=== PATIENT | male | born 1970 | race Two or more races ===

== ENCOUNTER 2017-03-10 13:52 | Inpatient (IN) | payer OTHER ==
[~2017-03-10] VITALS: Ht 175.3 cm; Wt 81.6 kg
[2017-03-10 13:52] VITALS: BP 125/83
[2017-03-10 14:28] LABS: APPEARANCE,URINE CLEAR; BASOPHILS % (AUTO) 0.8 % (0.0-2.0); EOSINOPHILS % (AUTO) 0.2 % (0.0-3.0); KETONES,URINE 4+ (NEGATIVE); LEUKOCYTE ESTERASE ,URINE NEGATIVE (NEGATIVE); LYMPHOCYTES % (AUTO) 25.6 % (20.0-45.0); MEAN CORPUSCULAR HEMOGLOBIN 28.7 PG (27.0-31.0); MEAN CORPUSCULAR VOLUME 87 FL (80-99); MEAN PLATELET VOLUME 7.2 FL (6.5-10.1); MONOCYTES % (AUTO) 11.4 % (1.0-10.0); NEUTROPHILS % (AUTO) 62.1 % (45.0-75.0); NITRITE,URINE NEGATIVE (NEGATIVE); PH,URINE 6.5 (4.5-8.0); PLATELET COUNT 266 K/UL (150-450); PROTEIN,URINE 1+ (NEGATIVE); RED BLOOD COUNT 5.55 M/UL (4.70-6.10); RED CELL DISTRIBUTION WIDTH 14.2 % (11.6-14.8); UROBILINOGEN,URINE 1 MG/DL (0.0-1.0); WHITE BLOOD COUNT 7.9 K/UL (4.8-10.8)
[2017-03-10 14:38] LABS: SQUAMOUS EPITHELIAL CELL,UR OCCASIONAL /LPF (NONE/OCC); WBC,URINE 0-2 /HPF (0 - 0)
[2017-03-10 14:39] LABS: BACTERIA,URINE OCCASIONAL /HPF
[2017-03-10 14:40] LABS: INR 0.9 (0.9-1.1); PROTHROMBIN TIME 9.8 SEC (9.30-11.50)
[2017-03-10 14:41] LABS: ANION GAP 22 mmol/L (5-15); CARBON DIOXIDE 19 MMOL/L (21-32); CHLORIDE 85 MMOL/L (98-107); CREATININE 0.9 MG/DL (0.55-1.30); GLOMERULAR FILTRATION RATE > 60 mL/min (>60); SODIUM 126 MMOL/L (136-145)
[2017-03-10 14:51] LABS: ALANINE AMINOTRANSFERASE 40 U/L (12-78); ALBUMIN/GLOBULIN RATIO 1.1 (1.0-2.7); ASPARTATE AMINO TRANSFERASE 55 U/L (15-37); LIPASE 1154 U/L (73-393); TOTAL PROTEIN 8.2 G/DL (6.4-8.2)
[2017-03-10 14:54] LABS: BILIRUBIN,DIRECT 0.5 MG/DL (0.0-0.3)
[2017-03-10] MEDS ORDERED: Morphine Sulfate 4mg/ml Inj IVP ONE (15:15)
--- NOTE | 2017-03-10 16:03 | Emergency Room Report ---
History of Present Illness General Chief Complaint: Flu Like Symptoms Source: Patient, EMS Present Illness HPI The patient is a 46 old male presenting for 5 days of nausea, vomiting, abdominal pain, diarrhea, and subjective fevers. He denies any known sick contacts or recent travel. He denies any medical history. Pain is a 10 out of 10 dull ache to the mid upper abdomen and radiates to the mid back. No known provoking or relieving factors. He does admit to frequent alcohol use. He denies any other symptoms including hematemesis, melena, hematochezia, rash, shortness of breath, chest pain Allergies: Coded Allergies: No Known Allergies (Unverified , 03/10/17) Patient History Past Medical History: see triage record Pertinent Family History: none Social History: Reports: alcohol use Reviewed Nursing Documentation: PMH: Agreed, PSxH: Agreed Nursing Documentation-PMH Past Medical History: No Stated History Review of Systems All Other Systems: negative except mentioned in HPI Physical Exam Vital Signs Date Time Temp Pulse Resp B/P (MAP) Pulse Ox O2 Delivery O2 Flow Rate FiO2 03/10/17 13:49 97.2 89 20 125/83 99 Room Air Sp02 EP Interpretation: reviewed, normal General Appearance: no apparent distress, alert, GCS 15, non-toxic Head: normocephalic, atraumatic Eyes: bilateral eye normal inspection, bilateral eye PERRL ENT: hearing grossly normal, normal pharynx, no angioedema, normal voice Respiratory: chest non-tender, lungs clear, normal breath sounds, speaking full sentences Cardiovascular #1: regular rate, rhythm, no edema Gastrointestinal: normal bowel sounds, soft, no guarding, tenderness - epigastric Rectal: deferred Genitourinary: normal inspection, no CVA tenderness Musculoskeletal: back normal, gait/station normal, normal range of motion, non- tender Neurologic: alert, oriented x3, responsive, motor strength/tone normal, sensory intact, speech normal Psychiatric: judgement/insight normal, memory normal, mood/affect normal, no suicidal/homicidal ideation Skin: normal color, no rash, warm/dry, well hydrated Medical Decision Making PA Attestation Dr. Castillo is my supervising physician. Patient management was discussed with my supervising physician Diagnostic Impression: Primary Impression: Pancreatitis, acute Qualified Codes: K85.90 - Acute pancreatitis without necrosis or infection, unspecified Additional Impressions: Hyponatremia Hypokalemia ER Course The patient is a 46 old male presenting for 5 days of nausea, vomiting, abdominal pain, diarrhea, and subjective fevers Differential diagnoses considered include but not limited to gastritis, pancreatitis, appendicitis, dehydration, UTI, among others PE: afebrile. NAD Abd is soft. Normal BS. Non distended. TTP across upper abdomen. No guarding No CVA tenderness Labs: Significant for hyponatremia, hypokalemia, and significantly elevated lipase Abd US: No signs of gallstones or cholecystis The patient is given IV fluids and will be admitted in serious but stable condition. Dr. Castillo has spoken with admitting physician Laboratory Tests Test 03/10/17 14:00 White Blood Count 7.9 K/UL (4.8-10.8) Red Blood Count 5.55 M/UL (4.70-6.10) Hemoglobin 15.9 G/DL (14.2-18.0) Hematocrit 48.1 % (42.0-52.0) Mean Corpuscular Volume 87 FL (80-99) Mean Corpuscular Hemoglobin 28.7 PG (27.0-31.0) Mean Corpuscular Hemoglobin Concent 33.0 G/DL (32.0-36.0) Red Cell Distribution Width 14.2 % (11.6-14.8) Platelet Count 266 K/UL (150-450) Mean Platelet Volume 7.2 FL (6.5-10.1) Neutrophils (%) (Auto) 62.1 % (45.0-75.0) Lymphocytes (%) (Auto) 25.6 % (20.0-45.0) Monocytes (%) (Auto) 11.4 % (1.0-10.0) H Eosinophils (%) (Auto) 0.2 % (0.0-3.0) Basophils (%) (Auto) 0.8 % (0.0-2.0) Prothrombin Time 9.8 SEC (9.30-11.50) Prothrombin Time INR 0.9 (0.9-1.1) PTT 29 SEC (23-33) Urine Color Pale yellow Urine Appearance Clear Urine pH 6.5 (4.5-8.0) Urine Specific [place] 1.005 (1.005-1.035) Urine Protein 1+ (NEGATIVE) H Urine Glucose (UA) Negative (NEGATIVE) Urine Ketones 4+ (NEGATIVE) H Urine Occult Blood 2+ (NEGATIVE) H Urine Nitrite Negative (NEGATIVE) Urine Bilirubin Negative (NEGATIVE) Urine Urobilinogen 1 MG/DL (0.0-1.0) H Urine Leukocyte Esterase Negative (NEGATIVE) Urine RBC 2-4 /HPF (0 - 0) H Urine WBC 0-2 /HPF (0 - 0) Urine Squamous Epithelial Cells Occasional /LPF Urine Bacteria Occasional /HPF (NONE) Sodium Level 126 MMOL/L (136-145) L Potassium Level 3.0 MMOL/L (3.5-5.1) L Chloride Level 85 MMOL/L (98-107) L Carbon Dioxide Level 19 MMOL/L (21-32) L Anion Gap 22 mmol/L (5-15) H Blood Urea Nitrogen 5 mg/dL (7-18) L Creatinine 0.9 MG/DL (0.55-1.30) Estimate Glomerular Filtration Rate > 60 mL/min (>60) Glucose Level 153 MG/DL (74-106) H Calcium Level 10.0 MG/DL (8.5-10.1) Total Bilirubin 1.4 MG/DL (0.2-1.0) H Direct Bilirubin 0.5 MG/DL (0.0-0.3) H Aspartate Amino Transferase (AST) 55 U/L (15-37) H Alanine Aminotransferase (ALT) 40 U/L (12-78) Alkaline Phosphatase 48 U/L (46-116) Total Protein 8.2 G/DL (6.4-8.2) Albumin 4.3 G/DL (3.4-5.0) Globulin 3.9 g/dL Albumin/Globulin Ratio 1.1 (1.0-2.7) Lipase 1154 U/L (73-393) H Lab Results Impression Significant for hyponatremia, hypokalemia, and significantly elevated lipase Chest X-Ray Diagnostic Results Chest X-Ray Diagnostic Results : Chest X-Ray Ordered: Yes # of Views/Limited/Complete: 1 View Indication: Other - abd pain EP Interpretation: Yes PA Xray: Interpretation reviewed, by supervising MD, and agrees with findings. Interpretation: no consolidation, no effusion, no pneumothorax, no acute cardiopulmonary disease Impression: No acute disease Electronically Signed by: Fernando Terzian, PA-C CT/MRI/US Diagnostic Results CT/MRI/US Diagnostic Results : Imaging Test Ordered: Abd US Impression Gallbladder sludge. Negative for gallstones or dilated ducts Liver demonstrates diffusely increased echogenicity, consistent with diffuse hepatocellular disease, most likely fatty change. Last Vital Signs Date Time Temp Pulse Resp B/P (MAP) Pulse Ox O2 Delivery O2 Flow Rate FiO2 03/10/17 13:55 86 20 Room Air 03/10/17 13:52 97.2 125/83 99 Status: improved Disposition: ADMITTED INPATIENT Condition: Serious Scripts No Active Prescriptions or Reported Meds Referrals: NON PHYSICIAN (PCP) FERNANDO STEWARD Mar 10, 2017 16:03
[2017-03-10] MEDS ORDERED: Miralax 17gm pkt ORAL PRN (16:45)
[2017-03-10] MEDS ORDERED: Mylanta II UD 30ml ORAL PRN (16:45)
[2017-03-10] MEDS ORDERED: Nitroglycerin Subl 0.4mg tab SL PRN (16:45)
[2017-03-10] MEDS ORDERED: Metoclopramide 10mg/2ml Inj IVP PRN (16:45)
[2017-03-10] MEDS ORDERED: LORazepam Inj 2mg/ml 1ml IV PRN (16:45)
[2017-03-10 17:00] VITALS: BP 121/79
--- NOTE | 2017-03-10 17:11 | Diagnostic Imaging Report ---
Indication: Right upper quadrant pain, nausea, vomiting x5 days Technique: Parra-scale and duplex images of the upper abdomen were obtained Comparison: None Findings: Gallbladder demonstrates sludge. No stones, wall thickening, nor pericholecystic fluid. Sonographic Kuhn's sign is negative. Common bile duct measures 4 mm in diameter. No intrahepatic biliary ductal dilatation. Liver demonstrates diffusely increased echogenicity, consistent with diffuse hepatocellular disease, most likely fatty change. Portal vein and hepatic veins are patent. Pancreas is unremarkable. Spleen is unremarkable. Left kidney measures 10.9 cm in length. Right kidney measures 10 cm length. Both kidneys demonstrate normal echogenicity. There is no hydronephrosis. No focal abnormality . Non-aneurysmal abdominal aorta . Impression: Gallbladder sludge. Negative for gallstones or dilated ducts Liver demonstrates diffusely increased echogenicity, consistent with diffuse hepatocellular disease, most likely fatty change.
[2017-03-10 17:29] VITALS: BP 115/77
[2017-03-10 18:03] VITALS: BP 110/97
[2017-03-10 18:10] LABS: FREE T3 2.6 pg/mL (2.3-4.2); THYROID STIMULATING HORMONE 1.292 uiU/mL (0.358-3.740)
[2017-03-10] MEDS: D5 1/2NS 1,000 ML IV SCH (18:43)
[2017-03-10 20:00] VITALS: BP 115/73
[2017-03-10] MEDS: Folic Acid 1 MG, Magnesium Sulfate 2,000 MG, Multivitamin - 12 Injection 10 ML in NS w/... IV SCH (20:48)
[2017-03-10] MEDS: Heparin 5000 units/ml inj SUBQ SCH (20:49)
[2017-03-10] MEDS: Morphine Sulfate 2mg/ml Inj IVP PRN (20:50)
--- NOTE | 2017-03-10 21:51 | Consultation ---
History of Present Illness General Date patient seen: Mar 10, 2017 Chief Complaint: Abdominal pain nausea afgter alcohol binging Referring physician: Dr. Mitchell Reason for Consultation: Abdminal pain and nausea after alcohol binging Present Illness CHRIS Martinez is a 46 yo gentle man with pmhx hip replacement 06/2016 depression and alcoholism and dependence and addiction more than 20 years who presents to [facility] emergency room with complaint of severe burning abdominal pain and nausea with radiation to the left upper quadrant of the abdomen. The patient denies any fever or chills, no complaint of shortness of breath or chest pain. The presents to the emergency room according to him because the abdominal pain is excruciating and the feeling of nausea is profound, the patient admits he cannot drink or eat without feeling nauseated. I was asked to consult on this case from a internal medicine point of view. The patient laboratory results are significant for large deviations in electrolyte balance and elevation in lipase level, the patient is to be admitted with a diagnosis of acute alcohol induced pancreatitis. Allergies: Coded Allergies: No Known Allergies (Unverified , 03/10/17) Medication History No Active Prescriptions or Reported Meds Patient History Healthcare decision maker Resuscitation status Advanced Directive on File Past Medical/Surgical History Past Medical/Surgical History: (1) Cyclical vomiting (2) Low back pain (3) Elevated liver enzymes (4) Sludge in gallbladder Review of Systems Constitutional: Reports: malaise, weakness Gastrointestinal: Reports: abdominal pain, nausea Physical Exam General Appearance: lethargic, mild distress Lines, tubes and drains: peripheral HEENT: normocephalic, atraumatic, PERRL Neck: non-tender, normal alignment, supple, normal inspection Respiratory/Chest: chest wall non-tender, normal breath sounds, no respiratory distress, no accessory muscle use Breasts: no masses Cardiovascular/Chest: normal peripheral pulses, normal rate, regular rhythm, no JVD Abdomen: normal bowel sounds, non tender, soft, no organomegaly, no mass Genitourinary/Rectal: normal genital exam, normal rectal exam Extremities: normal range of motion, non-tender, normal inspection, no calf tenderness Skin Exam: normal pigmentation, warm/dry Neurologic: l d rn II-XII grossly normal, no motor/sensory deficits Last 24 Hour Vital Signs Date Time Temp Pulse Resp B/P (MAP) Pulse Ox O2 Delivery O2 Flow Rate FiO2 03/10/17 20:00 98.1 93 20 115/73 99 Room Air 03/10/17 18:03 97.9 97 18 110/97 97 03/10/17 17:29 97.7 96 19 115/77 96 Room Air 03/10/17 17:01 97.2 94 18 121/79 100 Room Air 03/10/17 17:00 97.6 94 18 121/79 99 Room Air 03/10/17 15:55 97.9 03/10/17 13:55 86 20 Room Air 03/10/17 13:52 97.2 87 20 125/83 99 Room Air 03/10/17 13:49 97.2 89 20 125/83 99 Room Air Intake and Output 03/10/17 03/11/17 19:00 07:00 Intake Total 1000 ml Balance 1000 ml Intake IV Total 1000 ml # Voids 1 Laboratory Tests Test 03/10/17 14:00 03/10/17 16:00 White Blood Count 7.9 K/UL (4.8-10.8) Red Blood Count 5.55 M/UL (4.70-6.10) Hemoglobin 15.9 G/DL (14.2-18.0) Hematocrit 48.1 % (42.0-52.0) Mean Corpuscular Volume 87 FL (80-99) Mean Corpuscular Hemoglobin 28.7 PG (27.0-31.0) Mean Corpuscular Hemoglobin Concent 33.0 G/DL (32.0-36.0) Red Cell Distribution Width 14.2 % (11.6-14.8) Platelet Count 266 K/UL (150-450) Mean Platelet Volume 7.2 FL (6.5-10.1) Neutrophils (%) (Auto) 62.1 % (45.0-75.0) Lymphocytes (%) (Auto) 25.6 % (20.0-45.0) Monocytes (%) (Auto) 11.4 % (1.0-10.0) H Eosinophils (%) (Auto) 0.2 % (0.0-3.0) Basophils (%) (Auto) 0.8 % (0.0-2.0) Prothrombin Time 9.8 SEC (9.30-11.50) Prothromb Time International Ratio 0.9 (0.9-1.1) Activated Partial Thromboplast Time 29 SEC (23-33) Urine Color Pale yellow Urine Appearance Clear Urine pH 6.5 (4.5-8.0) Urine Specific [place] 1.005 (1.005-1.035) Urine Protein 1+ (NEGATIVE) H Urine Glucose (UA) Negative (NEGATIVE) Urine Ketones 4+ (NEGATIVE) H Urine Occult Blood 2+ (NEGATIVE) H Urine Nitrite Negative (NEGATIVE) Urine Bilirubin Negative (NEGATIVE) Urine Urobilinogen 1 MG/DL (0.0-1.0) H Urine Leukocyte Esterase Negative (NEGATIVE) Urine RBC 2-4 /HPF (0 - 0) H Urine WBC 0-2 /HPF (0 - 0) Urine Squamous Epithelial Cells Occasional /LPF Urine Bacteria Occasional /HPF (NONE) Sodium Level 126 MMOL/L (136-145) L Potassium Level 3.0 MMOL/L (3.5-5.1) L Chloride Level 85 MMOL/L (98-107) L Carbon Dioxide Level 19 MMOL/L (21-32) L Anion Gap 22 mmol/L (5-15) H Blood Urea Nitrogen 5 mg/dL (7-18) L Creatinine 0.9 MG/DL (0.55-1.30) Estimat Glomerular Filtration Rate > 60 mL/min (>60) Glucose Level 153 MG/DL (74-106) H Osmolality 270 mOsm/kg (297-317) L Uric Acid 9.0 MG/DL (2.6-7.2) H Calcium Level 10.0 MG/DL (8.5-10.1) Total Bilirubin 1.4 MG/DL (0.2-1.0) H Direct Bilirubin 0.5 MG/DL (0.0-0.3) H Aspartate Amino Transf (AST/SGOT) 55 U/L (15-37) H Alanine Aminotransferase (ALT/SGPT) 40 U/L (12-78) Alkaline Phosphatase 48 U/L (46-116) Total Protein 8.2 G/DL (6.4-8.2) Albumin 4.3 G/DL (3.4-5.0) Globulin 3.9 g/dL Albumin/Globulin Ratio 1.1 (1.0-2.7) Lipase 1154 U/L (73-393) H Thyroid Stimulating Hormone (TSH) 1.292 uiU/mL (0.358-3.740) Free Thyroxine 1.23 NG/DL (0.76-1.46) Free Triiodothyronine 2.6 pg/mL (2.3-4.2) Cortisol Pending Urine Osmolality 199 mOsm/kg (429-449) L Urine Random Sodium < 10 MEQ/L (20-110) L Height (Feet): 5 Height (Inches): 9.00 Weight (Pounds): 180 Medications Current Medications Medications (Trade) Dose Ordered Sig/Taj Route PRN Reason Start Time Stop Time Status Last Admin Dose Admin Acetaminophen (Tylenol) 650 mg Q4H PRN ORAL fever 03/10/17 16:45 04/09/17 16:44 Al Hydroxide/Mg Hydroxide (Mylanta II) 30 ml Q6H PRN ORAL dyspepsia 03/10/17 16:45 04/09/17 16:44 Dextrose (Dextrose 50%) STAT PRN IV Hypoglycemia 03/10/17 16:45 04/09/17 16:44 Dextrose/Sodium Chloride 1,000 ml @ 75 mls/hr [id number] IV 03/10/17 17:30 04/09/17 17:29 03/10/17 18:43 Diphenhydramine HCl (Benadryl) 25 mg Q6H PRN ORAL Itching/Pruritis 03/10/17 16:45 04/09/17 16:44 Folic Acid 1 mg/ Magnesium Sulfate 2000 mg/ Multivitamins 10 ml/Sodium Chloride 1,014.2 ml @ 125 mls/ hr Q24H IV 03/10/17 20:00 04/09/17 19:59 03/10/17 20:48 Heparin Sodium (Porcine) (Heparin 5000 units/ml) 5,000 units EVERY 12 HOURS SUBQ 03/10/17 21:00 04/09/17 20:59 03/10/17 20:49 Lorazepam (Ativan 2mg/ml 1ml) 1 mg Q4H PRN IV agitation 03/10/17 16:45 03/17/17 16:44 Metoclopramide HCl (Reglan) 10 mg Q6H PRN IVP severe nausea 03/10/17 16:45 04/09/17 16:44 Morphine Sulfate (Morphine Sulfate) 2 mg Q4H PRN IVP severe Pain (Pain Scale 7-10) 03/10/17 16:45 03/17/17 16:44 03/10/17 20:50 Nitroglycerin (Ntg) 0.4 mg Q5M X 3 DOSES PRN SL Prn Chest Pain 03/10/17 16:45 04/09/17 16:44 Ondansetron HCl (Zofran) 4 mg Q6H PRN IVP Nausea & Vomiting 03/10/17 16:45 04/09/17 16:44 Pantoprazole (Protonix) 40 mg DAILY IV 03/11/17 09:00 04/10/17 08:59 Polyethylene Glycol (Miralax) 17 gm HSPRN PRN ORAL Constipation 03/10/17 16:45 04/09/17 16:44 Promethazine HCl (Phenergan) 25 mg Q8H PRN IV refractory nausea 03/10/17 16:45 04/09/17 16:44 Temazepam (Restoril) 15 mg HSPRN PRN ORAL Insomnia 03/10/17 16:45 03/17/17 16:44 Assessment/Plan Status: stable, progressing Assessment/Plan Acute alcohol induced pancreatitis Hyponatremia Hypokalemia Hepatocellular disease likely fatty liver disease History of alcoholism and dependence more than 20 years Plan NPO IVF hydration Electrolyte replacement Gastroenterology consultation requested Serial lipase Anti-emetic prn Patient education extensive abstanance from ETOH Patient education counseling options 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
[2017-03-11] VITALS: BP 107/70
[2017-03-11 01:20] LABS: APPEARANCE,URINE CLEAR; KETONES,URINE 4+ (NEGATIVE); LEUKOCYTE ESTERASE ,URINE 1+ (NEGATIVE); NITRITE,URINE NEGATIVE (NEGATIVE); PH,URINE 6 (4.5-8.0); PROTEIN,URINE 2+ (NEGATIVE); UROBILINOGEN,URINE 4 MG/DL (0.0-1.0)
[2017-03-11 02:00] LABS: BACTERIA,URINE FEW /HPF; MUCUS,URINE FEW /LPF (NONE/OCC); WBC,URINE 0-2 /HPF (0 - 0)
[2017-03-11 04:00] VITALS: BP 116/98
[2017-03-11] MEDS: D5 1/2NS 1,000 ML IV SCH (06:32)
[2017-03-11 07:13] LABS: BASOPHILS % (AUTO) 0.8 % (0.0-2.0); EOSINOPHILS % (AUTO) 0.6 % (0.0-3.0); LYMPHOCYTES % (AUTO) 36.8 % (20.0-45.0); MEAN CORPUSCULAR HEMOGLOBIN 29.4 PG (27.0-31.0); MEAN CORPUSCULAR HGB CONC 33.6 G/DL (32.0-36.0); MEAN CORPUSCULAR VOLUME 87 FL (80-99); MEAN PLATELET VOLUME 6.8 FL (6.5-10.1); MONOCYTES % (AUTO) 10.1 % (1.0-10.0); NEUTROPHILS % (AUTO) 51.6 % (45.0-75.0); PLATELET COUNT 250 K/UL (150-450); RED BLOOD COUNT 4.73 M/UL (4.70-6.10); RED CELL DISTRIBUTION WIDTH 14.4 % (11.6-14.8); WHITE BLOOD COUNT 5.4 K/UL (4.8-10.8)
[2017-03-11 07:49] LABS: ALANINE AMINOTRANSFERASE 33 U/L (12-78); AMYLASE 112 U/L (25-115); ANION GAP 13 mmol/L (5-15); ASPARTATE AMINO TRANSFERASE 50 U/L (15-37); CALCIUM 8.7 MG/DL (8.5-10.1); CARBON DIOXIDE 26 MMOL/L (21-32); CHLORIDE 95 MMOL/L (98-107); CHOLESTEROL 199 MG/DL (< 200); CHOLESTEROL/HDL RATIO 2.8 (3.3-4.4); CREATININE 0.7 MG/DL (0.55-1.30); GLOMERULAR FILTRATION RATE > 60 mL/min (>60); LIPASE 1135 U/L (73-393); SODIUM 133 MMOL/L (136-145); TOTAL PROTEIN 6.7 G/DL (6.4-8.2)
[2017-03-11 08:00] VITALS: BP 108/73
--- NOTE | 2017-03-11 08:07 | Pulmonology Progress Note ---
Assessment/Plan Assessment/Plan ASSESSMENT acute alcohol induced pancreatitis hypo Na hypo K hepatocellular disease likely fatty liver disease + ETOH abuse marijuana user probably cyclic vomiting syndrome PLAN OF CARE MS floor IVF GI follows trend lipase ( initial 1154) check lipid panel pain management a/emetic prn PPI abdominal US - no dilated ducts, no gallstones, + evidence of diffused hepatocellular disease likely fatty changes DVT prophylaxis urine tox screen + marijuana replace K, check K and Mg in am Na better with IVF add Librium prn for possible w/drawal symptoms start Folic acid and Thiamine counselor aide on ETOH cessation and abstinence from street drugs case discussed and evaluated by supervising physician Subjective Allergies: Coded Allergies: No Known Allergies (Unverified , 03/10/17) Subjective reports abdominal pain admits to recent heavy drinking + nausea, no vomiting today Objective Last 24 Hour Vital Signs Date Time Temp Pulse Resp B/P (MAP) Pulse Ox O2 Delivery O2 Flow Rate FiO2 03/11/17 04:00 98.1 94 18 116/98 97 03/11/17 00:00 97.9 87 20 107/70 98 Room Air 03/10/17 20:00 98.1 93 20 115/73 99 Room Air 03/10/17 18:03 97.9 97 18 110/97 97 03/10/17 17:29 97.7 96 19 115/77 96 Room Air 03/10/17 17:01 97.2 94 18 121/79 100 Room Air 03/10/17 17:00 97.6 94 18 121/79 99 Room Air 03/10/17 15:55 97.9 03/10/17 13:55 86 20 Room Air 03/10/17 13:52 97.2 87 20 125/83 99 Room Air 03/10/17 13:49 97.2 89 20 125/83 99 Room Air General Appearance: WD/WN, no acute distress HEENT: normocephalic, atraumatic, anicteric, PERRL Respiratory/Chest: lungs clear, normal breath sounds, no respiratory distress, no accessory muscle use Cardiovascular: normal peripheral pulses, normal rate, regular rhythm, no JVD Abdomen: normal bowel sounds - abdomen soft, + mild epigastric tenderness , no rebound, no guarding Extremities: no edema, pedal pulses normal Neurologic/Psychiatric: 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 grossly normal, no motor/sensory deficits, alert, oriented x 3, responsive Musculoskeletal: normal muscle bulk Laboratory Tests 03/10/17 14:00: White Blood Count 7.9, Red Blood Count 5.55, Hemoglobin 15.9, Hematocrit 48.1, Mean Corpuscular Volume 87, Mean Corpuscular Hemoglobin 28.7, Mean Corpuscular Hemoglobin Concent 33.0, Red Cell Distribution Width 14.2, Platelet Count 266, Mean Platelet Volume 7.2, Neutrophils (%) (Auto) 62.1, Lymphocytes (%) (Auto) 25.6, Monocytes (%) (Auto) 11.4H, Eosinophils (%) (Auto) 0.2, Basophils (%) ( Auto) 0.8, Prothrombin Time 9.8, Prothromb Time International Ratio 0.9, Activated Partial Thromboplast Time 29, Urine Color Pale yellow, Urine Appearance Clear, Urine pH 6.5, Urine Specific [place] 1.005, Urine Protein 1+H , Urine Glucose (UA) Negative, Urine Ketones 4+H, Urine Occult Blood 2+H, Urine Nitrite Negative, Urine Bilirubin Negative, Urine Urobilinogen 1H, Urine Leukocyte Esterase Negative, Urine RBC 2-4H, Urine WBC 0-2, Urine Squamous Epithelial Cells Occasional, Urine Bacteria Occasional, Sodium Level 126L, Potassium Level 3.0L, Chloride Level 85L, Carbon Dioxide Level 19L, Anion Gap 22H, Blood Urea Nitrogen 5L, Creatinine 0.9, Estimat Glomerular Filtration Rate > 60, Glucose Level 153H, Osmolality 270L, Uric Acid 9.0H, Calcium Level 10.0, Total Bilirubin 1.4H, Direct Bilirubin 0.5H, Aspartate Amino Transf (AST/SGOT) 55H, Alanine Aminotransferase (ALT/SGPT) 40, Alkaline Phosphatase 48, Total Protein 8.2, Albumin 4.3, Globulin 3.9, Albumin/Globulin Ratio 1.1, Lipase 1154H , Thyroid Stimulating Hormone (TSH) 1.292, Free Thyroxine 1.23, Free Triiodothyronine 2.6, Cortisol [Pending] 03/10/17 16:00: Urine Osmolality 199L, Urine Random Sodium < 10L 03/11/17 00:14: Urine Color Yellow, Urine Appearance Clear, Urine pH 6, Urine Specific [place] 1.020, Urine Protein 2+H, Urine Glucose (UA) Negative, Urine Ketones 4+H, Urine Occult Blood 2+H, Urine Nitrite Negative, Urine Bilirubin Negative, Urine Urobilinogen 4H, Urine Leukocyte Esterase 1+H, Urine RBC 5-10H, Urine WBC 0-2, Urine Squamous Epithelial Cells None, Urine Bacteria Few, Urine Mucus FewH, Urine Opiates Screen PositiveH, Urine Barbiturates Screen Negative, Phencyclidine (PCP) Screen Negative, Urine Amphetamines Screen Negative, Urine Benzodiazepines Screen Negative, Urine Cocaine Screen Negative, Urine Marijuana (THC) Screen PositiveH 03/11/17 06:40: White Blood Count 5.4, Red Blood Count 4.73, Hemoglobin 13.9L, Hematocrit 41.4L , Mean Corpuscular Volume 87, Mean Corpuscular Hemoglobin 29.4, Mean Corpuscular Hemoglobin Concent 33.6, Red Cell Distribution Width 14.4, Platelet Count 250, Mean Platelet Volume 6.8, Neutrophils (%) (Auto) 51.6, Lymphocytes (% ) (Auto) 36.8, Monocytes (%) (Auto) 10.1H, Eosinophils (%) (Auto) 0.6, Basophils (%) (Auto) 0.8, Activated Partial Thromboplast Time 28, Sodium Level 133L, Potassium Level 3.0L, Chloride Level 95L, Carbon Dioxide Level 26, Anion Gap 13, Blood Urea Nitrogen 5L, Creatinine 0.7, Estimat Glomerular Filtration Rate > 60, Glucose Level 125H, Calcium Level 8.7, Total Bilirubin 0.8, Aspartate Amino Transf (AST/SGOT) 50H, Alanine Aminotransferase (ALT/SGPT) 33, Alkaline Phosphatase 37L, Total Protein 6.7, Albumin 3.3L, Globulin 3.4, Albumin /Globulin Ratio 1.0, Lipase 1135H, Triglycerides Level 168H, Cholesterol Level 199, LDL Cholesterol 84, HDL Cholesterol 71H, Cholesterol/HDL Ratio 2.8L, Amylase Level 112 Current Medications Medications (Trade) Dose Ordered Sig/Taj Route PRN Reason Start Time Stop Time Status Last Admin Dose Admin Acetaminophen (Tylenol) 650 mg Q4H PRN ORAL fever 03/10/17 16:45 04/09/17 16:44 Al Hydroxide/Mg Hydroxide (Mylanta II) 30 ml Q6H PRN ORAL dyspepsia 03/10/17 16:45 04/09/17 16:44 Dextrose (Dextrose 50%) STAT PRN IV Hypoglycemia 03/10/17 16:45 04/09/17 16:44 Dextrose/Sodium Chloride 1,000 ml @ 75 mls/hr [id number] IV 03/10/17 17:30 04/09/17 17:29 03/11/17 06:32 Diphenhydramine HCl (Benadryl) 25 mg Q6H PRN ORAL Itching/Pruritis 03/10/17 16:45 04/09/17 16:44 Folic Acid 1 mg/ Magnesium Sulfate 2000 mg/ Multivitamins 10 ml/Sodium Chloride 1,014.2 ml @ 125 mls/ hr Q24H IV 03/10/17 20:00 04/09/17 19:59 03/10/17 20:48 Heparin Sodium (Porcine) (Heparin 5000 units/ml) 5,000 units EVERY 12 HOURS SUBQ 03/10/17 21:00 04/09/17 20:59 03/10/17 20:49 Lorazepam (Ativan 2mg/ml 1ml) 1 mg Q4H PRN IV agitation 03/10/17 16:45 03/17/17 16:44 Metoclopramide HCl (Reglan) 10 mg Q6H PRN IVP severe nausea 03/10/17 16:45 04/09/17 16:44 Morphine Sulfate (Morphine Sulfate) 2 mg Q4H PRN IVP severe Pain (Pain Scale 7-10) 03/10/17 16:45 03/17/17 16:44 03/10/17 20:50 Nitroglycerin (Ntg) 0.4 mg Q5M X 3 DOSES PRN SL Prn Chest Pain 03/10/17 16:45 04/09/17 16:44 Ondansetron HCl (Zofran) 4 mg Q6H PRN IVP Nausea & Vomiting 03/10/17 16:45 04/09/17 16:44 Pantoprazole (Protonix) 40 mg DAILY IV 03/11/17 09:00 04/10/17 08:59 Polyethylene Glycol (Miralax) 17 gm HSPRN PRN ORAL Constipation 03/10/17 16:45 04/09/17 16:44 Promethazine HCl (Phenergan) 25 mg Q8H PRN IV refractory nausea 03/10/17 16:45 04/09/17 16:44 Temazepam (Restoril) 15 mg HSPRN PRN ORAL Insomnia 03/10/17 16:45 03/17/17 16:44 Thomas (Rom)Debbi NP Mar 11, 2017 08:07
[2017-03-11] MEDS: Pantoprazole Inj IV SCH (08:38)
[2017-03-11] MEDS: Heparin 5000 units/ml inj SUBQ SCH ×2 (08:40→20:11)
--- NOTE | 2017-03-11 11:32 | GI Initial Consult Note ---
History of Present Illness General Date patient seen: Mar 11, 2017 Time patient seen: 11:22 Reason for Hospitalization: Flu Like Symptoms Referring physician: DORIAN PRYOR Reason for Consultation: PANCREATITIS Present Illness HPI The patient is a 46 old male presenting for 5 days of nausea, vomiting, abdominal pain, diarrhea, and subjective fevers. He denies any known sick contacts or recent travel. He denies any medical history. Pain is a 10 out of 10 dull ache to the mid upper abdomen and radiates to the mid back. No known provoking or relieving factors. He does admit to frequent alcohol use. He denies any other symptoms including hematemesis, melena, hematochezia, rash, shortness of breath, chest pain. GI consulted for pancreatitis. HPI as noted above. Pt seen on floor, awake A &Ox4 NAD with no active s/sx of N/V/D. Per patient states he has recurrent vomiting for the past 3 days. Denies drug use, despite positive utox. States he drinks ETOH approximately 1 bottle of tequila weekly. Patient also c/o of left lumbar pain. Presents today with elevated lipase. No known history of endoscopic or colonoscopies. Home Meds No Active Prescriptions or Reported Meds Med list reviewed/reconciled: Yes Allergies: Coded Allergies: No Known Allergies (Unverified , 03/10/17) Patient History History Provided By: Patient, Medical Record PMH Narrative Past Medical History: see triage record Pertinent Family History: none Social History: Reports: alcohol use Reviewed Nursing Documentation: PMH: Agreed, PSxH: Agreed Nursing Documentation-PM Past Medical History: No Stated History Social History: Reports: alcohol use - 1 bottle tequilla weekly, drug use - denies, despited positive utox Review of Systems All Other Systems: negative except mentioned in HPI Physical Exam Vital Signs Date Time Temp Pulse Resp B/P (MAP) Pulse Ox O2 Delivery O2 Flow Rate FiO2 03/10/17 13:49 97.2 89 20 125/83 99 Room Air Sp02 EP Interpretation: reviewed, normal Labs Laboratory Tests Test 03/10/17 14:00 03/10/17 16:00 03/11/17 00:14 03/11/17 06:40 White Blood Count 7.9 K/UL (4.8-10.8) 5.4 K/UL (4.8-10.8) Red Blood Count 5.55 M/UL (4.70-6.10) 4.73 M/UL (4.70-6.10) Hemoglobin 15.9 G/DL (14.2-18.0) 13.9 G/DL (14.2-18.0) L Hematocrit 48.1 % (42.0-52.0) 41.4 % (42.0-52.0) L Mean Corpuscular Volume 87 FL (80-99) 87 FL (80-99) Mean Corpuscular Hemoglobin 28.7 PG (27.0-31.0) 29.4 PG (27.0-31.0) Mean Corpuscular Hemoglobin Concent 33.0 G/DL (32.0-36.0) 33.6 G/DL (32.0-36.0) Red Cell Distribution Width 14.2 % (11.6-14.8) 14.4 % (11.6-14.8) Platelet Count 266 K/UL (150-450) 250 K/UL (150-450) Mean Platelet Volume 7.2 FL (6.5-10.1) 6.8 FL (6.5-10.1) Neutrophils (%) (Auto) 62.1 % (45.0-75.0) 51.6 % (45.0-75.0) Lymphocytes (%) (Auto) 25.6 % (20.0-45.0) 36.8 % (20.0-45.0) Monocytes (%) (Auto) 11.4 % (1.0-10.0) H 10.1 % (1.0-10.0) H Eosinophils (%) (Auto) 0.2 % (0.0-3.0) 0.6 % (0.0-3.0) Basophils (%) (Auto) 0.8 % (0.0-2.0) 0.8 % (0.0-2.0) Prothrombin Time 9.8 SEC (9.30-11.50) Prothromb Time International Ratio 0.9 (0.9-1.1) Activated Partial Thromboplast Time 29 SEC (23-33) 28 SEC (23-33) Urine Color Pale yellow Yellow Urine Appearance Clear Clear Urine pH 6.5 (4.5-8.0) 6 (4.5-8.0) Urine Specific [place] 1.005 (1.005-1.035) 1.020 (1.005-1.035) Urine Protein 1+ (NEGATIVE) H 2+ (NEGATIVE) H Urine Glucose (UA) Negative (NEGATIVE) Negative (NEGATIVE) Urine Ketones 4+ (NEGATIVE) H 4+ (NEGATIVE) H Urine Occult Blood 2+ (NEGATIVE) H 2+ (NEGATIVE) H Urine Nitrite Negative (NEGATIVE) Negative (NEGATIVE) Urine Bilirubin Negative (NEGATIVE) Negative (NEGATIVE) Urine Urobilinogen 1 MG/DL (0.0-1.0) H 4 MG/DL (0.0-1.0) H Urine Leukocyte Esterase Negative (NEGATIVE) 1+ (NEGATIVE) H Urine RBC 2-4 /HPF (0 - 0) H 5-10 /HPF (0 - 0) H Urine WBC 0-2 /HPF (0 - 0) 0-2 /HPF (0 - 0) Urine Squamous Epithelial Cells Occasional /LPF None /LPF (NONE/OCC) Urine Bacteria Occasional /HPF (NONE) Few /HPF (NONE) Sodium Level 126 MMOL/L (136-145) L 133 MMOL/L (136-145) L Potassium Level 3.0 MMOL/L (3.5-5.1) L 3.0 MMOL/L (3.5-5.1) L Chloride Level 85 MMOL/L (98-107) L 95 MMOL/L (98-107) L Carbon Dioxide Level 19 MMOL/L (21-32) L 26 MMOL/L (21-32) Anion Gap 22 mmol/L (5-15) H 13 mmol/L (5-15) Blood Urea Nitrogen 5 mg/dL (7-18) L 5 mg/dL (7-18) L Creatinine 0.9 MG/DL (0.55-1.30) 0.7 MG/DL (0.55-1.30) Estimat Glomerular Filtration Rate > 60 mL/min (>60) > 60 mL/min (>60) Glucose Level 153 MG/DL (74-106) H 125 MG/DL (74-106) H Osmolality 270 mOsm/kg (297-317) L Uric Acid 9.0 MG/DL (2.6-7.2) H Calcium Level 10.0 MG/DL (8.5-10.1) 8.7 MG/DL (8.5-10.1) Total Bilirubin 1.4 MG/DL (0.2-1.0) H 0.8 MG/DL (0.2-1.0) Direct Bilirubin 0.5 MG/DL (0.0-0.3) H Aspartate Amino Transf (AST/SGOT) 55 U/L (15-37) H 50 U/L (15-37) H Alanine Aminotransferase (ALT/SGPT) 40 U/L (12-78) 33 U/L (12-78) Alkaline Phosphatase 48 U/L (46-116) 37 U/L (46-116) L Total Protein 8.2 G/DL (6.4-8.2) 6.7 G/DL (6.4-8.2) Albumin 4.3 G/DL (3.4-5.0) 3.3 G/DL (3.4-5.0) L Globulin 3.9 g/dL 3.4 g/dL Albumin/Globulin Ratio 1.1 (1.0-2.7) 1.0 (1.0-2.7) Lipase 1154 U/L (73-393) H 1135 U/L (73-393) H Thyroid Stimulating Hormone (TSH) 1.292 uiU/mL (0.358-3.740) Free Thyroxine 1.23 NG/DL (0.76-1.46) Free Triiodothyronine 2.6 pg/mL (2.3-4.2) Cortisol Pending Urine Osmolality 199 mOsm/kg (429-449) L Urine Random Sodium < 10 MEQ/L (20-110) L Urine Mucus Few /LPF (NONE/OCC) H Urine Opiates Screen Positive (NEGATIVE) H Urine Barbiturates Screen Negative (NEGATIVE) Phencyclidine (PCP) Screen Negative (NEGATIVE) Urine Amphetamines Screen Negative (NEGATIVE) Urine Benzodiazepines Screen Negative (NEGATIVE) Urine Cocaine Screen Negative (NEGATIVE) Urine Marijuana (THC) Screen Positive (NEGATIVE) H Triglycerides Level 168 MG/DL (30-150) H Cholesterol Level 199 MG/DL (< 200) LDL Cholesterol 84 mg/dL (<100) HDL Cholesterol 71 MG/DL (40-60) H Cholesterol/HDL Ratio 2.8 (3.3-4.4) L Amylase Level 112 U/L (25-115) General Appearance: well appearing, no apparent distress, alert Head: normocephalic EENT: PERRL/EOMI, normal ENT inspection Neck: supple Respiratory: normal breath sounds, no respiratory distress Cardiovascular: normal rate Gastrointestinal: normal inspection, non tender, soft, normal bowel sounds, non -distended Rectal: deferred Genitourinary: deferred Musculoskeletal: normal inspection, back normal Neurologic: normal inspection, alert, oriented x3, responsive Psychiatric: normal inspection, judgement/insight normal, memory normal Skin: normal inspection, normal color, no rash, warm/dry, palpation normal, well hydrated Lymphatic: normal inspection, no adenopathy Current Medications Current Medications Medications (Trade) Dose Ordered Sig/Taj Route PRN Reason Start Time Stop Time Status Last Admin Dose Admin Acetaminophen (Tylenol) 650 mg Q4H PRN ORAL fever 03/10/17 16:45 04/09/17 16:44 Al Hydroxide/Mg Hydroxide (Mylanta II) 30 ml Q6H PRN ORAL dyspepsia 03/10/17 16:45 04/09/17 16:44 Dextrose (Dextrose 50%) STAT PRN IV Hypoglycemia 03/10/17 16:45 04/09/17 16:44 Dextrose/ Electrolytes 1,000 ml @ 125 mls/hr Q8H IV 03/11/17 12:00 04/10/17 11:59 Diphenhydramine HCl (Benadryl) 25 mg Q6H PRN ORAL Itching/Pruritis 03/10/17 16:45 04/09/17 16:44 Folic Acid 1 mg/ Magnesium Sulfate 2000 mg/ Multivitamins 10 ml/Sodium Chloride 1,014.2 ml @ 125 mls/ hr Q24H IV 03/10/17 20:00 04/09/17 19:59 03/10/17 20:48 Heparin Sodium (Porcine) (Heparin 5000 units/ml) 5,000 units EVERY 12 HOURS SUBQ 03/10/17 21:00 04/09/17 20:59 03/11/17 08:40 Lorazepam (Ativan 2mg/ml 1ml) 1 mg Q4H PRN IV agitation 03/10/17 16:45 03/17/17 16:44 Metoclopramide HCl (Reglan) 10 mg Q6H PRN IVP severe nausea 03/10/17 16:45 04/09/17 16:44 Morphine Sulfate (Morphine Sulfate) 2 mg Q4H PRN IVP severe Pain (Pain Scale 7-10) 03/10/17 16:45 03/17/17 16:44 03/10/17 20:50 Nitroglycerin (Ntg) 0.4 mg Q5M X 3 DOSES PRN SL Prn Chest Pain 03/10/17 16:45 04/09/17 16:44 Ondansetron HCl (Zofran) 4 mg Q6H PRN IVP Nausea & Vomiting 03/10/17 16:45 04/09/17 16:44 Pantoprazole (Protonix) 40 mg DAILY IV 03/11/17 09:00 04/10/17 08:59 03/11/17 08:38 Polyethylene Glycol (Miralax) 17 gm HSPRN PRN ORAL Constipation 03/10/17 16:45 04/09/17 16:44 Promethazine HCl (Phenergan) 25 mg Q8H PRN IV refractory nausea 03/10/17 16:45 04/09/17 16:44 Temazepam (Restoril) 15 mg HSPRN PRN ORAL Insomnia 03/10/17 16:45 03/17/17 16:44 GI: Plan Problems: (1) Pancreatitis, acute (2) Cyclical vomiting Plan utox >> marijuana positive symptomatic treatment pain mgmt zofran prn IV hydration bowel rest >> trial CLD, adv as tolerated ppi electrolyte correction repeat lipase fu labs alcohol cessation given Discussed with Dr. Wilkins. Thank you for this patient referral, we will follow. Aranza Espino N.P. Mar 11, 2017 11:32
[2017-03-11 12:00] VITALS: BP 112/60
[2017-03-11] MEDS: D5 1/2NS w/KCl 20mEq 1,000 ML IV SCH ×2 (12:17→20:09)
[2017-03-11 16:15] VITALS: BP 109/60
[2017-03-11] MEDS ORDERED: D5 1/2NS 1,000 ML IV SCH (17:30)
--- NOTE | 2017-03-11 18:49 | History & Physical ---
History and Physical History & Physicial Dictated for Int Med-Dr Gold no. [id number]. NEVIN LANDRY Mar 11, 2017 18:49
[2017-03-11 20:00] VITALS: BP 115/73
--- NOTE | 2017-03-11 20:01 | History and Physical Report ---
DATE OF ADMISSION: 03/10/2017 CHIEF COMPLAINT: The patient is a 46-year-old male, presents with chief complaint of nausea, vomiting and abdominal pain. HISTORY OF PRESENT ILLNESS: Began on 03/07/2017. The patient states he has been drinking Tequila almost daily for the last month. The patient states he has become depressed because he has been unable to work. The patient has a history of left hip replacement in 06/2016. The patient presented to [facility] emergency room. The patient complains of nausea, vomiting and abdominal pain as above. Abdominal pain is epigastric and radiates to the left upper quadrant. The patient was found to have elevated lipase in the emergency room. The patient is admitted for acute pancreatitis, probably secondary to alcohol use. PAST MEDICAL HISTORY: The patient denies. PAST SURGICAL HISTORY: Significant for left hip replacement in 06/2016. CURRENT MEDICATIONS: The patient denies. ALLERGIES: No known drug allergies. SOCIAL HISTORY: The patient is single and is currently unemployed. The patient lives with his aunt. The patient denies tobacco use. The patient admits to alcohol use of several shots of Tequila daily. The patient denies drug abuse. REVIEW OF SYSTEMS: CONSTITUTIONAL: The patient denies weight loss or weight gain. The patient has fevers or chills. HEENT: The patient denies ear or throat pain. The patient denies headache. CARDIOVASCULAR: The patient denies palpitations or chest pain. CHEST: The patient denies wheeze or shortness of breath. ABDOMEN: The patient complains of epigastric and left upper quadrant pain as above. The patient complains of nausea with vomiting. The patient denies diarrhea or constipation. GENITOURINARY: The patient denies dysuria or increased frequency of urination. NEUROMUSCULAR: The patient denies seizures or generalized weakness. PHYSICAL EXAMINATION: GENERAL: The patient is a well-developed and well-nourished male, in no apparent distress. VITAL SIGNS: Temperature 98.1 degrees, respirations 20, pulse 93, blood pressure 150/72. HEENT: Eyes, pupils equal and responsive to light and accommodation. Extraocular movements are intact. NECK: Supple without lymphadenopathy. CHEST: Lungs are clear to auscultation bilaterally without wheezes or rales. CARDIOVASCULAR: Regular rhythm and rate. S1 and S2 normal without murmurs, rubs, or gallops. ABDOMEN: Soft, diffusely tender in the epigastric and left upper quadrant areas without rebound or guarding. Positive bowel sounds are decreased. RECTAL/GENITAL: Refused. NEUROLOGIC: Cranial nerves II through XII are grossly intact without focal deficits. Motor strength is 5/5 bilaterally. Deep tendon reflexes are 2+ plantar throughout. LABORATORY AND DIAGNOSTIC DATA: WBC 7.9, hemoglobin 15.9, hematocrit 48.1 and platelets 266,000. Sodium 126, potassium 3.0, chloride 85, CO2 19, BUN 5, creatinine 0.9 and glucose 153. Lipase elevated at 1154. Liver function tests were mildly elevated with an AST of 55. Total bilirubin of 1.4. Direct bilirubin of 0.5. An abdominal ultrasound revealed gallbladder sludge. There were no common bile duct stones noted. ASSESSMENT: This is a 46-year-old male 1. Acute pancreatitis. 2. Alcohol abuse. 3. Gallbladder sludge. 4. Elevated liver function tests. 5. Chronic low back pain. TREATMENT: 1. Pancreatitis/alcohol abuse/gallbladder sludge/elevated liver function tests. A Gastroenterology consultation has been obtained with Dr. Richmond Wilkins. Pancreatitis probably secondary to alcohol abuse. We will follow recommendations of Gastroenterology. The patient is currently NPO. 2. Chronic low back pain. Continue pain management. Sean Mitchell M.D. DR: DANIA JOB#: [id number] CC:
[2017-03-11] MEDS: Morphine Sulfate 2mg/ml Inj IVP PRN (20:10)
[2017-03-11] MEDS: Folic Acid 1 MG, Magnesium Sulfate 2,000 MG, Multivitamin - 12 Injection 10 ML in NS w/... IV SCH (20:42)
[2017-03-11] MEDS ORDERED: chlordiazePOXIDE 25mg Cap ORAL PRN (23:15)
[2017-03-12] VITALS (7 sets, daily range): BP systolic 113–129; BP diastolic 67–86
[2017-03-12] MEDS: Morphine Sulfate 2mg/ml Inj IVP PRN ×3 (06:46→18:11)
[2017-03-12 07:40] LABS: BASOPHILS % (AUTO) 1.1 % (0.0-2.0); EOSINOPHILS % (AUTO) 1.8 % (0.0-3.0); LYMPHOCYTES % (AUTO) 37.8 % (20.0-45.0); MEAN CORPUSCULAR HEMOGLOBIN 29.7 PG (27.0-31.0); MEAN CORPUSCULAR HGB CONC 33.8 G/DL (32.0-36.0); MEAN CORPUSCULAR VOLUME 88 FL (80-99); MEAN PLATELET VOLUME 6.6 FL (6.5-10.1); MONOCYTES % (AUTO) 12.9 % (1.0-10.0); NEUTROPHILS % (AUTO) 46.4 % (45.0-75.0); PLATELET COUNT 257 K/UL (150-450); RED BLOOD COUNT 4.43 M/UL (4.70-6.10); RED CELL DISTRIBUTION WIDTH 14.2 % (11.6-14.8); WHITE BLOOD COUNT 5.1 K/UL (4.8-10.8)
[2017-03-12 08:08] LABS: ALANINE AMINOTRANSFERASE 30 U/L (12-78); ALBUMIN/GLOBULIN RATIO 0.9 (1.0-2.7); AMYLASE 112 U/L (25-115); ANION GAP 6 mmol/L (5-15); ASPARTATE AMINO TRANSFERASE 41 U/L (15-37); CALCIUM 8.5 MG/DL (8.5-10.1); CARBON DIOXIDE 29 MMOL/L (21-32); CHLORIDE 97 MMOL/L (98-107); CREATININE 0.6 MG/DL (0.55-1.30); GLOMERULAR FILTRATION RATE > 60 mL/min (>60); LIPASE 1213 U/L (73-393); SODIUM 132 MMOL/L (136-145)
[2017-03-12 08:20] LABS: POTASSIUM 2.7 MMOL/L (3.5-5.1)
[2017-03-12] MEDS ORDERED: KCl 10% 40mEq/30ml liquid ORAL SCH ×2 (08:45→14:00)
[2017-03-12] MEDS: Pantoprazole Inj IV SCH (09:17)
[2017-03-12] MEDS: Heparin 5000 units/ml inj SUBQ SCH ×2 (09:17→21:08)
[2017-03-12] MEDS: Thiamine 100mg tab ORAL SCH (09:17)
[2017-03-12] MEDS ORDERED: KCl 10% 20 mEq/15ml liquid GT SCH ×2 (11:15→18:00)
[2017-03-12] MEDS: D5 1/2NS w/KCl 20mEq 1,000 ML IV SCH ×2 (11:42→21:07)
--- NOTE | 2017-03-12 12:26 | Internal Med Progress Note ---
Subjective Date of Service: Mar 12, 2017 Physician Name Nevin Landry Attending Physician Israel Gold MD Current Medications Medications (Trade) Dose Ordered Sig/Taj Route PRN Reason Start Time Stop Time Status Last Admin Dose Admin Acetaminophen (Tylenol) 650 mg Q4H PRN ORAL fever 03/10/17 16:45 04/09/17 16:44 Al Hydroxide/Mg Hydroxide (Mylanta II) 30 ml Q6H PRN ORAL dyspepsia 03/10/17 16:45 04/09/17 16:44 Chlordiazepoxide (Librium) 25 mg Q6H PRN ORAL Agitation, tremors 03/11/17 23:15 03/18/17 23:14 Dextrose (Dextrose 50%) STAT PRN IV Hypoglycemia 03/10/17 16:45 04/09/17 16:44 Dextrose/ Electrolytes 1,000 ml @ 100 mls/hr Q10H IV 03/12/17 12:00 04/11/17 11:59 03/12/17 11:42 Diphenhydramine HCl (Benadryl) 25 mg Q6H PRN ORAL Itching/Pruritis 03/10/17 16:45 04/09/17 16:44 Folic Acid (Folate) 1 mg DAILY ORAL 03/12/17 09:00 04/11/17 08:59 03/12/17 09:17 Heparin Sodium (Porcine) (Heparin 5000 units/ml) 5,000 units EVERY 12 HOURS SUBQ 03/10/17 21:00 04/09/17 20:59 03/12/17 09:17 Lorazepam (Ativan 2mg/ml 1ml) 1 mg Q4H PRN IV agitation 03/10/17 16:45 03/17/17 16:44 Metoclopramide HCl (Reglan) 10 mg Q6H PRN IVP severe nausea 03/10/17 16:45 04/09/17 16:44 Morphine Sulfate (Morphine Sulfate) 2 mg Q4H PRN IVP severe Pain (Pain Scale 7-10) 03/10/17 16:45 03/17/17 16:44 03/12/17 06:46 Nitroglycerin (Ntg) 0.4 mg Q5M X 3 DOSES PRN SL Prn Chest Pain 03/10/17 16:45 04/09/17 16:44 Ondansetron HCl (Zofran) 4 mg Q6H PRN IVP Nausea & Vomiting 03/10/17 16:45 04/09/17 16:44 Pantoprazole (Protonix) 40 mg DAILY IV 03/11/17 09:00 04/10/17 08:59 03/12/17 09:17 Polyethylene Glycol (Miralax) 17 gm HSPRN PRN ORAL Constipation 03/10/17 16:45 04/09/17 16:44 Potassium Chloride (KCl 10% 20 mEq oral solution) 40 meq ONCE GT 03/12/17 18:00 03/12/17 18:01 Promethazine HCl (Phenergan) 25 mg Q8H PRN IV refractory nausea 03/10/17 16:45 04/09/17 16:44 Temazepam (Restoril) 15 mg HSPRN PRN ORAL Insomnia 03/10/17 16:45 03/17/17 16:44 Thiamine HCl (Vitamin B1) 100 mg DAILY ORAL 03/12/17 09:00 04/11/17 08:59 03/12/17 09:17 Allergies: Coded Allergies: No Known Allergies (Unverified , 03/10/17) ROS Limited/Unobtainable: No Constitutional: Reports: no symptoms HEENT: Reports: no symptoms Cardiovascular: Reports: no symptoms Respiratory: Reports: no symptoms Gastrointestinal/Abdominal: Reports: abdominal pain, nausea, vomiting Genitourinary: Reports: no symptoms Neurologic/Psychiatric: Reports: no symptoms Subjective 46 YO M admitted with abdominal paint and pancreatitis. Cover for Int Nigel-Dr Gold. Await psych consult. Objective Last Vital Signs Date Time Temp Pulse Resp B/P (MAP) Pulse Ox O2 Delivery O2 Flow Rate FiO2 03/12/17 08:00 97.2 90 20 117/77 96 Room Air General Appearance: WD/WN, no apparent distress, alert EENT: PERRL/EOMI, normal ENT inspection, TMs normal Neck: non-tender, normal alignment, supple, normal inspection Cardiovascular: normal peripheral pulses, normal rate, regular rhythm, no gallop/murmur, no JVD Respiratory/Chest: chest wall non-tender, lungs clear, normal breath sounds, no respiratory distress, no accessory muscle use Abdomen: decreased bowel sounds, distended, guarding, tender Extremities: normal range of motion, non-tender Neurologic: family service counselor II-XII grossly normal, no motor/sensory deficits Skin: normal pigmentation, warm/dry Laboratory Tests Test 03/12/17 05:45 White Blood Count 5.1 K/UL (4.8-10.8) Red Blood Count 4.43 M/UL (4.70-6.10) L Hemoglobin 13.2 G/DL (14.2-18.0) L Hematocrit 38.9 % (42.0-52.0) L Mean Corpuscular Volume 88 FL (80-99) Mean Corpuscular Hemoglobin 29.7 PG (27.0-31.0) Mean Corpuscular Hemoglobin Concent 33.8 G/DL (32.0-36.0) Red Cell Distribution Width 14.2 % (11.6-14.8) Platelet Count 257 K/UL (150-450) Mean Platelet Volume 6.6 FL (6.5-10.1) Neutrophils (%) (Auto) 46.4 % (45.0-75.0) Lymphocytes (%) (Auto) 37.8 % (20.0-45.0) Monocytes (%) (Auto) 12.9 % (1.0-10.0) H Eosinophils (%) (Auto) 1.8 % (0.0-3.0) Basophils (%) (Auto) 1.1 % (0.0-2.0) Sodium Level 132 MMOL/L (136-145) L Potassium Level 2.7 MMOL/L (3.5-5.1) *L Chloride Level 97 MMOL/L (98-107) L Carbon Dioxide Level 29 MMOL/L (21-32) Anion Gap 6 mmol/L (5-15) Blood Urea Nitrogen 2 mg/dL (7-18) L Creatinine 0.6 MG/DL (0.55-1.30) Estimat Glomerular Filtration Rate > 60 mL/min (>60) Glucose Level 152 MG/DL (74-106) H Calcium Level 8.5 MG/DL (8.5-10.1) Magnesium Level 2.0 MG/DL (1.8-2.4) Total Bilirubin 0.6 MG/DL (0.2-1.0) Aspartate Amino Transf (AST/SGOT) 41 U/L (15-37) H Alanine Aminotransferase (ALT/SGPT) 30 U/L (12-78) Alkaline Phosphatase 32 U/L (46-116) L Total Protein 6.0 G/DL (6.4-8.2) L Albumin 2.9 G/DL (3.4-5.0) L Globulin 3.1 g/dL Albumin/Globulin Ratio 0.9 (1.0-2.7) L Amylase Level 112 U/L (25-115) Lipase 1213 U/L (73-393) H Assessment/Plan Problem List: (1) Alcohol abuse Assessment & Plan: Continue librium. Await psych eval (2) Sludge in gallbladder (3) Elevated liver enzymes Assessment & Plan: Due to alcohol abuse. See GI note. (4) Low back pain (5) Pancreatitis, acute Assessment & Plan: Due to alcohol abuse. See GI note. Continue clear liquid diet. Status: tolerating diet, not improved Assessment/Plan Clear liquid diet. NEVIN LANDRY Mar 12, 2017 12:26
--- NOTE | 2017-03-12 14:05 | Pulmonology Progress Note ---
Assessment/Plan Assessment/Plan ASSESSMENT acute alcohol induced pancreatitis hypo Na hypo K hepatocellular disease likely fatty liver disease + ETOH abuse marijuana user probably cyclic vomiting syndrome PLAN OF CARE MS floor IVF GI follows trend lipase ( initial 1154) lipid panel ( TG -168 not a cause for pancreatitis) pain management a/emetic prn PPI abdominal US - no dilated ducts, no gallstones, + evidence of diffused hepatocellular disease likely fatty changes DVT prophylaxis urine tox screen + marijuana replace K, Mg stable Na better with IVF Librium prn for possible w/drawal symptoms started on Folic acid and Thiamine grief counselor on ETOH cessation and abstinence from street drugs case discussed and evaluated by supervising physician Subjective Allergies: Coded Allergies: No Known Allergies (Unverified , 03/10/17) Subjective reports abdominal pain + nausea, no vomiting lipase with trend up low K-2.7 Objective Last 24 Hour Vital Signs Date Time Temp Pulse Resp B/P (MAP) Pulse Ox O2 Delivery O2 Flow Rate FiO2 03/12/17 12:00 98.1 89 18 114/78 97 Room Air 03/12/17 08:00 97.2 90 20 117/77 96 Room Air 03/12/17 04:00 97.7 102 18 115/67 100 Room Air 03/12/17 00:00 97.9 89 21 118/69 97 03/11/17 20:00 97.9 95 21 115/73 97 03/11/17 16:15 97.6 70 22 109/60 97 Room Air Intake and Output 03/12/17 03/13/17 19:00 07:00 Intake Total 100 ml Balance 100 ml IV Total 100 ml Objective General Appearance: WD/WN, no acute distress HEENT: normocephalic, atraumatic, anicteric, PERRL Respiratory/Chest: lungs clear, normal breath sounds, no respiratory distress, no accessory muscle use Cardiovascular: normal peripheral pulses, normal rate, regular rhythm, no JVD Abdomen: normal bowel sounds - abdomen soft, + mild epigastric tenderness , no rebound, no guarding Extremities: no edema, pedal pulses normal Neurologic/Psychiatric: hairspring setter II-XII grossly normal, no motor/sensory deficits, alert, oriented x 3, responsive Musculoskeletal: normal muscle bulk Laboratory Tests 03/12/17 05:45: White Blood Count 5.1, Red Blood Count 4.43L, Hemoglobin 13.2L, Hematocrit 38.9L , Mean Corpuscular Volume 88, Mean Corpuscular Hemoglobin 29.7, Mean Corpuscular Hemoglobin Concent 33.8, Red Cell Distribution Width 14.2, Platelet Count 257, Mean Platelet Volume 6.6, Neutrophils (%) (Auto) 46.4, Lymphocytes (% ) (Auto) 37.8, Monocytes (%) (Auto) 12.9H, Eosinophils (%) (Auto) 1.8, Basophils (%) (Auto) 1.1, Sodium Level 132L, Potassium Level 2.7*L, Chloride Level 97L, Carbon Dioxide Level 29, Anion Gap 6, Blood Urea Nitrogen 2L, Creatinine 0.6, Estimat Glomerular Filtration Rate > 60, Glucose Level 152H, Calcium Level 8.5, Magnesium Level 2.0, Total Bilirubin 0.6, Aspartate Amino Transf (AST/SGOT) 41H, Alanine Aminotransferase (ALT/SGPT) 30, Alkaline Phosphatase 32L, Total Protein 6.0L, Albumin 2.9L, Globulin 3.1, Albumin/ Globulin Ratio 0.9L, Amylase Level 112, Lipase 1213H Current Medications Medications (Trade) Dose Ordered Sig/Taj Route PRN Reason Start Time Stop Time Status Last Admin Dose Admin Acetaminophen (Tylenol) 650 mg Q4H PRN ORAL fever 03/10/17 16:45 04/09/17 16:44 Al Hydroxide/Mg Hydroxide (Mylanta II) 30 ml Q6H PRN ORAL dyspepsia 03/10/17 16:45 04/09/17 16:44 Chlordiazepoxide (Librium) 25 mg Q6H PRN ORAL Agitation, tremors 03/11/17 23:15 03/18/17 23:14 Dextrose (Dextrose 50%) STAT PRN IV Hypoglycemia 03/10/17 16:45 04/09/17 16:44 Dextrose/ Electrolytes 1,000 ml @ 100 mls/hr Q10H IV 03/12/17 12:00 04/11/17 11:59 03/12/17 11:42 Diphenhydramine HCl (Benadryl) 25 mg Q6H PRN ORAL Itching/Pruritis 03/10/17 16:45 04/09/17 16:44 Folic Acid (Folate) 1 mg DAILY ORAL 03/12/17 09:00 04/11/17 08:59 03/12/17 09:17 Heparin Sodium (Porcine) (Heparin 5000 units/ml) 5,000 units EVERY 12 HOURS SUBQ 03/10/17 21:00 04/09/17 20:59 03/12/17 09:17 Lorazepam (Ativan 2mg/ml 1ml) 1 mg Q4H PRN IV agitation 03/10/17 16:45 03/17/17 16:44 Metoclopramide HCl (Reglan) 10 mg Q6H PRN IVP severe nausea 03/10/17 16:45 04/09/17 16:44 Morphine Sulfate (Morphine Sulfate) 2 mg Q4H PRN IVP severe Pain (Pain Scale 7-10) 03/10/17 16:45 03/17/17 16:44 03/12/17 12:58 Nitroglycerin (Ntg) 0.4 mg Q5M X 3 DOSES PRN SL Prn Chest Pain 03/10/17 16:45 04/09/17 16:44 Ondansetron HCl (Zofran) 4 mg Q6H PRN IVP Nausea & Vomiting 03/10/17 16:45 04/09/17 16:44 Pantoprazole (Protonix) 40 mg DAILY IV 03/11/17 09:00 04/10/17 08:59 03/12/17 09:17 Polyethylene Glycol (Miralax) 17 gm HSPRN PRN ORAL Constipation 03/10/17 16:45 04/09/17 16:44 Potassium Chloride (KCl 10% 20 mEq oral solution) 40 meq ONCE GT 03/12/17 18:00 03/12/17 18:01 Promethazine HCl (Phenergan) 25 mg Q8H PRN IV refractory nausea 03/10/17 16:45 04/09/17 16:44 Temazepam (Restoril) 15 mg HSPRN PRN ORAL Insomnia 03/10/17 16:45 03/17/17 16:44 Thiamine HCl (Vitamin B1) 100 mg DAILY ORAL 03/12/17 09:00 04/11/17 08:59 03/12/17 09:17 [facility]perW[facility] CenterDebbi Philip NP Mar 12, 2017 14:05
[2017-03-12] MEDS ORDERED: D5 1/2NS 1000ml IV ONE (15:36)
--- NOTE | 2017-03-12 21:45 | General Progress Note ---
Assessment/Plan Assessment/Plan Assessment (1) Pancreatitis, acute (2) Cyclical vomiting utox >> marijuana positive Recommendations symptomatic treatment pain mgmt zofran prn IV hydration bowel rest >> trial CLD, adv as tolerated ppi electrolyte correction repeat lipase fu labs alcohol cessation given Subjective Allergies: Coded Allergies: No Known Allergies (Unverified , 03/10/17) Subjective feels better on liquids still with some abd pain Objective Last 24 Hour Vital Signs Date Time Temp Pulse Resp B/P (MAP) Pulse Ox O2 Delivery O2 Flow Rate FiO2 03/12/17 19:45 97.7 80 19 129/86 96 Room Air 03/12/17 16:00 97.7 87 19 113/80 98 Room Air 03/12/17 12:00 98.1 89 18 114/78 97 Room Air 03/12/17 08:00 97.2 90 20 117/77 96 Room Air 03/12/17 04:00 97.7 102 18 115/67 100 Room Air 03/12/17 00:00 97.9 89 21 118/69 97 Intake and Output 03/12/17 03/13/17 18:59 06:59 Intake Total 980 ml Output Total 500 ml Balance 480 ml Intake Oral 480 ml IV Total 500 ml Output Urine Total 500 ml # Voids 3 Laboratory Tests 03/12/17 05:45: White Blood Count 5.1, Red Blood Count 4.43L, Hemoglobin 13.2L, Hematocrit 38.9L , Mean Corpuscular Volume 88, Mean Corpuscular Hemoglobin 29.7, Mean Corpuscular Hemoglobin Concent 33.8, Red Cell Distribution Width 14.2, Platelet Count 257, Mean Platelet Volume 6.6, Neutrophils (%) (Auto) 46.4, Lymphocytes (% ) (Auto) 37.8, Monocytes (%) (Auto) 12.9H, Eosinophils (%) (Auto) 1.8, Basophils (%) (Auto) 1.1, Sodium Level 132L, Potassium Level 2.7*L, Chloride Level 97L, Carbon Dioxide Level 29, Anion Gap 6, Blood Urea Nitrogen 2L, Creatinine 0.6, Estimat Glomerular Filtration Rate > 60, Glucose Level 152H, Calcium Level 8.5, Magnesium Level 2.0, Total Bilirubin 0.6, Aspartate Amino Transf (AST/SGOT) 41H, Alanine Aminotransferase (ALT/SGPT) 30, Alkaline Phosphatase 32L, Total Protein 6.0L, Albumin 2.9L, Globulin 3.1, Albumin/ Globulin Ratio 0.9L, Amylase Level 112, Lipase 1213H Height (Feet): 5 Height (Inches): 9.00 Weight (Pounds): 180 Objective WDWN NCAT supple CTA RRR soft (+) epigastric TTP no edema non focal OTTONIEL NUNEZ Mar 12, 2017 21:45
[2017-03-13] MEDS: Morphine Sulfate 2mg/ml Inj IVP PRN ×5 (01:34→22:16)
[2017-03-13 04:00] VITALS: BP 111/74
[2017-03-13 08:00] VITALS: BP 112/74
[2017-03-13] MEDS: Thiamine 100mg tab ORAL SCH (08:08)
[2017-03-13] MEDS: D5 1/2NS w/KCl 20mEq 1,000 ML IV SCH ×2 (08:08→17:27)
[2017-03-13] MEDS: Pantoprazole Inj IV SCH (08:09)
[2017-03-13] MEDS: Heparin 5000 units/ml inj SUBQ SCH ×2 (08:12→21:10)
[2017-03-13 08:13] LABS: ALANINE AMINOTRANSFERASE 30 U/L (12-78); ALBUMIN/GLOBULIN RATIO 0.9 (1.0-2.7); ANION GAP 6 mmol/L (5-15); ASPARTATE AMINO TRANSFERASE 45 U/L (15-37); CALCIUM 8.8 MG/DL (8.5-10.1); CARBON DIOXIDE 29 MMOL/L (21-32); CHLORIDE 103 MMOL/L (98-107); CREATININE 0.7 MG/DL (0.55-1.30); GLOMERULAR FILTRATION RATE > 60 mL/min (>60); POTASSIUM 3.6 MMOL/L (3.5-5.1); SODIUM 138 MMOL/L (136-145); TOTAL PROTEIN 6.1 G/DL (6.4-8.2)
[2017-03-13 12:00] VITALS: BP 116/77
--- NOTE | 2017-03-13 13:06 | Pulmonology Progress Note ---
Assessment/Plan Assessment/Plan ASSESSMENT acute alcohol induced pancreatitis hypo Na hypo K hepatocellular disease likely fatty liver disease + ETOH abuse marijuana user probably cyclic vomiting syndrome PLAN OF CARE [facility] floor IVF GI follows trend lipase ( initial 1154), trending down lipid panel ( TG -168 not a cause for pancreatitis) pain management a/emetic prn PPI abdominal US - no dilated ducts, no gallstones, + evidence of diffused hepatocellular disease likely fatty changes DVT prophylaxis urine tox screen + marijuana K stable after replacement, Mg stable Na better with IVF Librium prn for possible w/drawal symptoms started on Folic acid and Thiamine , 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 lipase in am dc plan for tomorrow if cleared by Gi case discussed and evaluated by supervising physician Subjective Allergies: Coded Allergies: No Known Allergies (Unverified , 03/10/17) Subjective less abdominal pain + nausea, no vomiting lipase with trend down l Objective Last 24 Hour Vital Signs Date Time Temp Pulse Resp B/P (MAP) Pulse Ox O2 Delivery O2 Flow Rate FiO2 03/13/17 09:33 98 Room Air 03/13/17 08:00 97.7 96 20 112/74 98 03/13/17 04:00 97.9 79 20 111/74 97 Room Air 03/12/17 23:11 97.7 79 19 129/86 96 Room Air 03/12/17 19:45 97.7 80 19 129/86 96 Room Air 03/12/17 16:00 97.7 87 19 113/80 98 Room Air Intake and Output 03/13/17 03/14/17 19:00 07:00 Intake Total 100 ml Balance 100 ml IV Total 100 ml Objective General Appearance: WD/WN, no acute distress HEENT: normocephalic, atraumatic, anicteric, PERRL Respiratory/Chest: lungs clear, normal breath sounds, no respiratory distress, no accessory muscle use Cardiovascular: normal peripheral pulses, normal rate, regular rhythm, no JVD Abdomen: normal bowel sounds - abdomen soft, + mild epigastric tenderness , no rebound, no guarding Extremities: no edema, pedal pulses normal 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, no motor/sensory deficits, alert, oriented x 3, responsive Musculoskeletal: normal muscle bulk Laboratory Tests 03/13/17 05:40: Sodium Level 138, Potassium Level 3.6, Chloride Level 103, Carbon Dioxide Level 29, Anion Gap 6, Blood Urea Nitrogen 1L, Creatinine 0.7, Estimat Glomerular Filtration Rate > 60, Glucose Level 119H, Calcium Level 8.8, Total Bilirubin 0.4 , Aspartate Amino Transf (AST/SGOT) 45H, Alanine Aminotransferase (ALT/SGPT) 30 , Alkaline Phosphatase 35L, Total Protein 6.1L, Albumin 2.9L, Globulin 3.2, Albumin/Globulin Ratio 0.9L, Lipase 525H Current Medications Medications (Trade) Dose Ordered Sig/Taj Route PRN Reason Start Time Stop Time Status Last Admin Dose Admin Acetaminophen (Tylenol) 650 mg Q4H PRN ORAL fever 03/10/17 16:45 04/09/17 16:44 Al Hydroxide/Mg Hydroxide (Mylanta II) 30 ml Q6H PRN ORAL dyspepsia 03/10/17 16:45 04/09/17 16:44 Chlordiazepoxide (Librium) 25 mg Q6H PRN ORAL Agitation, tremors 03/11/17 23:15 03/18/17 23:14 Dextrose (Dextrose 50%) STAT PRN IV Hypoglycemia 03/10/17 16:45 04/09/17 16:44 Dextrose/ Electrolytes 1,000 ml @ 100 mls/hr Q10H IV 03/12/17 12:00 04/11/17 11:59 03/13/17 08:08 Diphenhydramine HCl (Benadryl) 25 mg Q6H PRN ORAL Itching/Pruritis 03/10/17 16:45 04/09/17 16:44 Folic Acid (Folate) 1 mg DAILY ORAL 03/12/17 09:00 04/11/17 08:59 03/13/17 08:09 Heparin Sodium (Porcine) (Heparin 5000 units/ml) 5,000 units EVERY 12 HOURS SUBQ 03/10/17 21:00 04/09/17 20:59 03/13/17 08:12 Lorazepam (Ativan 2mg/ml 1ml) 1 mg Q4H PRN IV agitation 03/10/17 16:45 03/17/17 16:44 Metoclopramide HCl (Reglan) 10 mg Q6H PRN IVP severe nausea 03/10/17 16:45 04/09/17 16:44 Morphine Sulfate (Morphine Sulfate) 2 mg Q4H PRN IVP severe Pain (Pain Scale 7-10) 03/10/17 16:45 03/17/17 16:44 03/13/17 12:36 Nitroglycerin (Ntg) 0.4 mg Q5M X 3 DOSES PRN SL Prn Chest Pain 03/10/17 16:45 04/09/17 16:44 Ondansetron HCl (Zofran) 4 mg Q6H PRN IVP Nausea & Vomiting 03/10/17 16:45 04/09/17 16:44 Pantoprazole (Protonix) 40 mg DAILY IV 03/11/17 09:00 04/10/17 08:59 03/13/17 08:09 Polyethylene Glycol (Miralax) 17 gm HSPRN PRN ORAL Constipation 03/10/17 16:45 04/09/17 16:44 Promethazine HCl (Phenergan) 25 mg Q8H PRN IV refractory nausea 03/10/17 16:45 04/09/17 16:44 Temazepam (Restoril) 15 mg HSPRN PRN ORAL Insomnia 03/10/17 16:45 03/17/17 16:44 Thiamine HCl (Vitamin B1) 100 mg DAILY ORAL 03/12/17 09:00 04/11/17 08:59 03/13/17 08:08 [facility] Philip NP Mar 13, 2017 13:05
--- NOTE | 2017-03-13 14:03 | Internal Med Progress Note ---
Subjective Date of Service: Mar 13, 2017 Physician Name Sean Mitchell Attending Physician Israel Gold MD Current Medications Medications (Trade) Dose Ordered Sig/Taj Route PRN Reason Start Time Stop Time Status Last Admin Dose Admin Acetaminophen (Tylenol) 650 mg Q4H PRN ORAL fever 03/10/17 16:45 04/09/17 16:44 Al Hydroxide/Mg Hydroxide (Mylanta II) 30 ml Q6H PRN ORAL dyspepsia 03/10/17 16:45 04/09/17 16:44 Chlordiazepoxide (Librium) 25 mg Q6H PRN ORAL Agitation, tremors 03/11/17 23:15 03/18/17 23:14 Dextrose (Dextrose 50%) STAT PRN IV Hypoglycemia 03/10/17 16:45 04/09/17 16:44 Dextrose/ Electrolytes 1,000 ml @ 100 mls/hr Q10H IV 03/12/17 12:00 04/11/17 11:59 03/13/17 08:08 Diphenhydramine HCl (Benadryl) 25 mg Q6H PRN ORAL Itching/Pruritis 03/10/17 16:45 04/09/17 16:44 Folic Acid (Folate) 1 mg DAILY ORAL 03/12/17 09:00 04/11/17 08:59 03/13/17 08:09 Heparin Sodium (Porcine) (Heparin 5000 units/ml) 5,000 units EVERY 12 HOURS SUBQ 03/10/17 21:00 04/09/17 20:59 03/13/17 08:12 Lorazepam (Ativan 2mg/ml 1ml) 1 mg Q4H PRN IV agitation 03/10/17 16:45 03/17/17 16:44 Metoclopramide HCl (Reglan) 10 mg Q6H PRN IVP severe nausea 03/10/17 16:45 04/09/17 16:44 Morphine Sulfate (Morphine Sulfate) 2 mg Q4H PRN IVP severe Pain (Pain Scale 7-10) 03/10/17 16:45 03/17/17 16:44 03/13/17 12:36 Nitroglycerin (Ntg) 0.4 mg Q5M X 3 DOSES PRN SL Prn Chest Pain 03/10/17 16:45 04/09/17 16:44 Ondansetron HCl (Zofran) 4 mg Q6H PRN IVP Nausea & Vomiting 03/10/17 16:45 04/09/17 16:44 Pantoprazole (Protonix) 40 mg DAILY IV 03/11/17 09:00 04/10/17 08:59 03/13/17 08:09 Polyethylene Glycol (Miralax) 17 gm HSPRN PRN ORAL Constipation 03/10/17 16:45 04/09/17 16:44 Promethazine HCl (Phenergan) 25 mg Q8H PRN IV refractory nausea 03/10/17 16:45 04/09/17 16:44 Temazepam (Restoril) 15 mg HSPRN PRN ORAL Insomnia 03/10/17 16:45 03/17/17 16:44 Thiamine HCl (Vitamin B1) 100 mg DAILY ORAL 03/12/17 09:00 04/11/17 08:59 03/13/17 08:08 Allergies: Coded Allergies: No Known Allergies (Unverified , 03/10/17) Subjective 46 YO M admitted with abdominal paint and pancreatitis. Cover for Int Med-Dr Gold Await CT abdomen Objective Last Vital Signs Date Time Temp Pulse Resp B/P (MAP) Pulse Ox O2 Delivery O2 Flow Rate FiO2 03/13/17 12:00 97.3 88 20 116/77 99 03/13/17 09:33 Room Air Laboratory Tests Test 03/13/17 05:40 Sodium Level 138 MMOL/L (136-145) Potassium Level 3.6 MMOL/L (3.5-5.1) Chloride Level 103 MMOL/L (98-107) Carbon Dioxide Level 29 MMOL/L (21-32) Anion Gap 6 mmol/L (5-15) Blood Urea Nitrogen 1 mg/dL (7-18) L Creatinine 0.7 MG/DL (0.55-1.30) Estimat Glomerular Filtration Rate > 60 mL/min (>60) Glucose Level 119 MG/DL (74-106) H Calcium Level 8.8 MG/DL (8.5-10.1) Total Bilirubin 0.4 MG/DL (0.2-1.0) Aspartate Amino Transf (AST/SGOT) 45 U/L (15-37) H Alanine Aminotransferase (ALT/SGPT) 30 U/L (12-78) Alkaline Phosphatase 35 U/L (46-116) L Total Protein 6.1 G/DL (6.4-8.2) L Albumin 2.9 G/DL (3.4-5.0) L Globulin 3.2 g/dL Albumin/Globulin Ratio 0.9 (1.0-2.7) L Lipase 525 U/L (73-393) H Intake and Output 03/13/17 03/14/17 19:00 07:00 Intake Total 100 ml Balance 100 ml IV Total 100 ml Objective General Appearance: WD/WN, no apparent distress, alert EENT: PERRL/EOMI, normal ENT inspection, TMs normal Neck: non-tender, normal alignment, supple, normal inspection Cardiovascular: normal peripheral pulses, normal rate, regular rhythm, no gallop/murmur, no JVD Respiratory/Chest: chest wall non-tender, lungs clear, normal breath sounds, no respiratory distress, no accessory muscle use Abdomen: decreased bowel sounds, distended, guarding, tender Extremities: normal range of motion, non-tender 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 Await psych eval (2) Sludge in gallbladder (3) Elevated liver enzymes Assessment & Plan: Due to alcohol abuse. See GI note. (4) Low back pain (5) Pancreatitis, acute Assessment & Plan: Due to alcohol abuse. See GI note. Tolerating regular diet. Await CT abdomen Status: progressing Assessment/Plan Physical therapy SEAN Gonzalez Mar 13, 2017 14:03
[2017-03-13 16:00] VITALS: BP 115/81
[2017-03-13 19:59] VITALS: BP 107/73
--- NOTE | 2017-03-13 20:39 | General Progress Note ---
Assessment/Plan Assessment/Plan Assessment (1) Pancreatitis, acute (2) Cyclical vomiting utox >> marijuana positive Recommendations symptomatic treatment pain mgmt zofran prn IV hydration bowel rest >> trial CLD, adv as tolerated ppi electrolyte correction repeat lipase fu labs alcohol cessation given Subjective Allergies: Coded Allergies: No Known Allergies (Unverified , 03/10/17) Subjective feels better tolerating PO still with some epigastric pain Objective Last 24 Hour Vital Signs Date Time Temp Pulse Resp B/P (MAP) Pulse Ox O2 Delivery O2 Flow Rate FiO2 03/13/17 19:59 97.5 84 18 107/73 98 03/13/17 16:00 97.3 95 20 115/81 99 03/13/17 12:00 97.3 88 20 116/77 99 03/13/17 09:33 98 Room Air 03/13/17 08:00 97.7 96 20 112/74 98 03/13/17 04:00 97.9 79 20 111/74 97 Room Air 03/12/17 23:11 97.7 79 19 129/86 96 Room Air Intake and Output 03/13/17 03/14/17 19:00 07:00 Intake Total 1100 ml Balance 1100 ml Intake Oral 300 ml IV Total 800 ml # Voids 4 Laboratory Tests 03/13/17 05:40: Sodium Level 138, Potassium Level 3.6, Chloride Level 103, Carbon Dioxide Level 29, Anion Gap 6, Blood Urea Nitrogen 1L, Creatinine 0.7, Estimat Glomerular Filtration Rate > 60, Glucose Level 119H, Calcium Level 8.8, Total Bilirubin 0.4 , Aspartate Amino Transf (AST/SGOT) 45H, Alanine Aminotransferase (ALT/SGPT) 30 , Alkaline Phosphatase 35L, Total Protein 6.1L, Albumin 2.9L, Globulin 3.2, Albumin/Globulin Ratio 0.9L, Lipase 525H Height (Feet): 5 Height (Inches): 9.00 Weight (Pounds): 180 Objective WDWN NCAT supple CTA RRR soft (+) epigastric TTP no edema non focal OTTONIEL NUNEZ Mar 13, 2017 20:39
[2017-03-13 23:51] VITALS: BP 109/69
[2017-03-14] MEDS: D5 1/2NS w/KCl 20mEq 1,000 ML IV SCH (03:46)
[2017-03-14] MEDS: Morphine Sulfate 2mg/ml Inj IVP PRN ×4 (03:47→19:57)
[2017-03-14 08:00] VITALS: BP 130/93
[2017-03-14 08:17] LABS: BASOPHILS % (AUTO) 1.4 % (0.0-2.0); EOSINOPHILS % (AUTO) 2.1 % (0.0-3.0); LYMPHOCYTES % (AUTO) 46.5 % (20.0-45.0); MEAN CORPUSCULAR HEMOGLOBIN 29.7 PG (27.0-31.0); MEAN CORPUSCULAR VOLUME 90 FL (80-99); MEAN PLATELET VOLUME 5.1 FL (6.5-10.1); MONOCYTES % (AUTO) 14.3 % (1.0-10.0); NEUTROPHILS % (AUTO) 35.8 % (45.0-75.0); PLATELET COUNT 341 K/UL (150-450); RED CELL DISTRIBUTION WIDTH 15.3 % (11.6-14.8); WHITE BLOOD COUNT 4.7 K/UL (4.8-10.8)
[2017-03-14 08:26] LABS: ANION GAP 6 mmol/L (5-15); CALCIUM 9.1 MG/DL (8.5-10.1); CARBON DIOXIDE 30 MMOL/L (21-32); CHLORIDE 104 MMOL/L (98-107); CREATININE 0.7 MG/DL (0.55-1.30); GLOMERULAR FILTRATION RATE > 60 mL/min (>60); LIPASE 488 U/L (73-393); POTASSIUM 4.2 MMOL/L (3.5-5.1); SODIUM 140 MMOL/L (136-145)
[2017-03-14] MEDS: Pantoprazole Inj IV SCH (08:34)
[2017-03-14] MEDS: Thiamine 100mg tab ORAL SCH (08:35)
[2017-03-14] MEDS: Heparin 5000 units/ml inj SUBQ SCH ×2 (08:42→20:35)
--- NOTE | 2017-03-14 10:02 | GI Progress Note ---
Assessment/Plan Problems: (1) Cyclical vomiting ICD Codes: G43.A0 - Cyclical vomiting, not intractable SNOMED: 17416906 (2) Pancreatitis, acute ICD Codes: K85.90 - Acute pancreatitis without necrosis or infection, unspecified SNOMED: 664680234 Qualifiers: Qualified Codes: K85.90 - Acute pancreatitis without necrosis or infection, unspecified (3) Elevated liver enzymes ICD Codes: R74.8 - Abnormal levels of other serum enzymes SNOMED: 968586178 (4) Alcohol abuse ICD Codes: F10.10 - Alcohol abuse, uncomplicated SNOMED: 84674579 Status: stable Status Narrative Discussed with Dr. Wilkins. Assessment/Plan Recommendations fu CT AP adv to regular diet symptomatic treatment pain mgmt zofran prn IV hydration ppi electrolyte correction repeat lipase, downtrending fu labs alcohol cessation given Subjective Gastrointestinal/Abdominal: Reports: no symptoms Objective Last 24 Hour Vital Signs Date Time Temp Pulse Resp B/P (MAP) Pulse Ox O2 Delivery O2 Flow Rate FiO2 03/14/17 09:04 97.0 03/14/17 08:00 96.8 79 18 130/93 96 Room Air 03/13/17 23:51 97.0 82 18 109/69 98 03/13/17 19:59 97.5 84 18 107/73 98 03/13/17 16:00 97.3 95 20 115/81 99 03/13/17 12:00 97.3 88 20 116/77 99 Laboratory Tests Test 03/14/17 06:30 White Blood Count 4.7 K/UL (4.8-10.8) L Red Blood Count 4.60 M/UL (4.70-6.10) L Hemoglobin 13.7 G/DL (14.2-18.0) L Hematocrit 41.5 % (42.0-52.0) L Mean Corpuscular Volume 90 FL (80-99) Mean Corpuscular Hemoglobin 29.7 PG (27.0-31.0) Mean Corpuscular Hemoglobin Concent 33.0 G/DL (32.0-36.0) Red Cell Distribution Width 15.3 % (11.6-14.8) H Platelet Count 341 K/UL (150-450) Mean Platelet Volume 5.1 FL (6.5-10.1) L Neutrophils (%) (Auto) 35.8 % (45.0-75.0) L Lymphocytes (%) (Auto) 46.5 % (20.0-45.0) H Monocytes (%) (Auto) 14.3 % (1.0-10.0) H Eosinophils (%) (Auto) 2.1 % (0.0-3.0) Basophils (%) (Auto) 1.4 % (0.0-2.0) Sodium Level 140 MMOL/L (136-145) Potassium Level 4.2 MMOL/L (3.5-5.1) Chloride Level 104 MMOL/L (98-107) Carbon Dioxide Level 30 MMOL/L (21-32) Anion Gap 6 mmol/L (5-15) Blood Urea Nitrogen 3 mg/dL (7-18) L Creatinine 0.7 MG/DL (0.55-1.30) Estimat Glomerular Filtration Rate > 60 mL/min (>60) Glucose Level 115 MG/DL (74-106) H Calcium Level 9.1 MG/DL (8.5-10.1) Lipase 488 U/L (73-393) H Height (Feet): 5 Height (Inches): 9.00 Weight (Pounds): 180 General Appearance: WD/WN, no apparent distress, alert Cardiovascular: normal rate Respiratory/Chest: normal breath sounds, no respiratory distress Abdominal Exam: normal bowel sounds, non tender, soft Extremities: normal range of motion, non-tender Aranza Espino N.P. Mar 14, 2017 10:02
--- NOTE | 2017-03-14 11:10 | Internal Med Progress Note ---
Subjective Date of Service: Mar 14, 2017 Physician Name Sean Landry Attending Physician Israel Gold MD Current Medications Medications (Trade) Dose Ordered Sig/Taj Route PRN Reason Start Time Stop Time Status Last Admin Dose Admin Acetaminophen (Tylenol) 650 mg Q4H PRN ORAL fever 03/10/17 16:45 04/09/17 16:44 Al Hydroxide/Mg Hydroxide (Mylanta II) 30 ml Q6H PRN ORAL dyspepsia 03/10/17 16:45 04/09/17 16:44 Chlordiazepoxide (Librium) 25 mg Q6H PRN ORAL Agitation, tremors 03/11/17 23:15 03/18/17 23:14 Dextrose (Dextrose 50%) STAT PRN IV Hypoglycemia 03/10/17 16:45 04/09/17 16:44 Dextrose/ Electrolytes 1,000 ml @ 100 mls/hr Q10H IV 03/12/17 12:00 04/11/17 11:59 03/14/17 03:46 Diphenhydramine HCl (Benadryl) 25 mg Q6H PRN ORAL Itching/Pruritis 03/10/17 16:45 04/09/17 16:44 Folic Acid (Folate) 1 mg DAILY ORAL 03/12/17 09:00 04/11/17 08:59 03/14/17 08:34 Heparin Sodium (Porcine) (Heparin 5000 units/ml) 5,000 units EVERY 12 HOURS SUBQ 03/10/17 21:00 04/09/17 20:59 03/14/17 08:42 Lorazepam (Ativan 2mg/ml 1ml) 1 mg Q4H PRN IV agitation 03/10/17 16:45 03/17/17 16:44 Metoclopramide HCl (Reglan) 10 mg Q6H PRN IVP severe nausea 03/10/17 16:45 04/09/17 16:44 Morphine Sulfate (Morphine Sulfate) 2 mg Q4H PRN IVP severe Pain (Pain Scale 7-10) 03/10/17 16:45 03/17/17 16:44 03/14/17 08:34 Nitroglycerin (Ntg) 0.4 mg Q5M X 3 DOSES PRN SL Prn Chest Pain 03/10/17 16:45 04/09/17 16:44 Ondansetron HCl (Zofran) 4 mg Q6H PRN IVP Nausea & Vomiting 03/10/17 16:45 04/09/17 16:44 Pantoprazole (Protonix) 40 mg DAILY IV 03/11/17 09:00 04/10/17 08:59 03/14/17 08:34 Polyethylene Glycol (Miralax) 17 gm HSPRN PRN ORAL Constipation 03/10/17 16:45 04/09/17 16:44 Promethazine HCl (Phenergan) 25 mg Q8H PRN IV refractory nausea 03/10/17 16:45 04/09/17 16:44 Temazepam (Restoril) 15 mg HSPRN PRN ORAL Insomnia 03/10/17 16:45 03/17/17 16:44 Thiamine HCl (Vitamin B1) 100 mg DAILY ORAL 03/12/17 09:00 04/11/17 08:59 03/14/17 08:35 Allergies: Coded Allergies: No Known Allergies (Unverified , 03/10/17) ROS Limited/Unobtainable: No Constitutional: Reports: no symptoms HEENT: Reports: no symptoms Cardiovascular: Reports: no symptoms Respiratory: Reports: no symptoms Gastrointestinal/Abdominal: Reports: abdominal pain, nausea Genitourinary: Reports: no symptoms Neurologic/Psychiatric: Reports: no symptoms Subjective 46 YO M admitted with abdominal paint and pancreatitis. Cover for Int Med-Dr Gold Await CT abdomen Objective Last Vital Signs Date Time Temp Pulse Resp B/P (MAP) Pulse Ox O2 Delivery O2 Flow Rate FiO2 03/14/17 09:04 97.0 03/14/17 08:00 79 18 130/93 96 Room Air Laboratory Tests Test 03/14/17 06:30 White Blood Count 4.7 K/UL (4.8-10.8) L Red Blood Count 4.60 M/UL (4.70-6.10) L Hemoglobin 13.7 G/DL (14.2-18.0) L Hematocrit 41.5 % (42.0-52.0) L Mean Corpuscular Volume 90 FL (80-99) Mean Corpuscular Hemoglobin 29.7 PG (27.0-31.0) Mean Corpuscular Hemoglobin Concent 33.0 G/DL (32.0-36.0) Red Cell Distribution Width 15.3 % (11.6-14.8) H Platelet Count 341 K/UL (150-450) Mean Platelet Volume 5.1 FL (6.5-10.1) L Neutrophils (%) (Auto) 35.8 % (45.0-75.0) L Lymphocytes (%) (Auto) 46.5 % (20.0-45.0) H Monocytes (%) (Auto) 14.3 % (1.0-10.0) H Eosinophils (%) (Auto) 2.1 % (0.0-3.0) Basophils (%) (Auto) 1.4 % (0.0-2.0) Sodium Level 140 MMOL/L (136-145) Potassium Level 4.2 MMOL/L (3.5-5.1) Chloride Level 104 MMOL/L (98-107) Carbon Dioxide Level 30 MMOL/L (21-32) Anion Gap 6 mmol/L (5-15) Blood Urea Nitrogen 3 mg/dL (7-18) L Creatinine 0.7 MG/DL (0.55-1.30) Estimat Glomerular Filtration Rate > 60 mL/min (>60) Glucose Level 115 MG/DL (74-106) H Calcium Level 9.1 MG/DL (8.5-10.1) Lipase 488 U/L (73-393) H Objective General Appearance: WD/WN, no apparent distress, alert EENT: PERRL/EOMI, normal ENT inspection, TMs normal Neck: non-tender, normal alignment, supple, normal inspection Cardiovascular: normal peripheral pulses, normal rate, regular rhythm, no gallop/murmur, no JVD Respiratory/Chest: chest wall non-tender, lungs clear, normal breath sounds, no respiratory distress, no accessory muscle use Abdomen: decreased bowel sounds, distended, guarding, tender Extremities: normal range of motion, non-tender 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 Await psych eval (2) Sludge in gallbladder (3) Elevated liver enzymes Assessment & Plan: Due to alcohol abuse. See GI note. (4) Low back pain (5) Pancreatitis, acute Assessment & Plan: Due to alcohol abuse. See GI note. Tolerating regular diet. Await CT abdomen Assessment/Plan Discharge planning: home health SEAN LANDRY Mar 14, 2017 11:10
--- NOTE | 2017-03-14 11:38 | Consultation ---
History of Present Illness General Date patient seen: Mar 13, 2017 Chief Complaint: Flu Like Symptoms Referring physician: DORIAN PRYOR Reason for Consultation: PANCREATITIS Present Illness HPI 46-year-old male, presents with chief complaint of nausea, vomiting and abdominal pain. the pt has hx of anxiety and alcohol dependence. the pt endorces anxiety and depressed mood Allergies: Coded Allergies: No Known Allergies (Unverified , 03/10/17) Medication History No Active Prescriptions or Reported Meds Patient History History Provided By: Patient, Medical Record, PMD Healthcare decision maker Resuscitation status Advanced Directive on File Past Medical/Surgical History Past Medical/Surgical History: (1) Hypokalemia (2) Pancreatitis, acute (3) Hyponatremia (4) Cyclical vomiting (5) Low back pain (6) Elevated liver enzymes (7) Sludge in gallbladder Review of Systems Psychiatric: Reports: prior hx, anxiety, depressed feelings, emotional problems Physical Exam General Appearance: no apparent distress, alert Neurologic: alert, oriented x 3, responsive, depressed affect Last 24 Hour Vital Signs Date Time Temp Pulse Resp B/P (MAP) Pulse Ox O2 Delivery O2 Flow Rate FiO2 03/14/17 09:04 97.0 03/14/17 08:00 96.8 79 18 130/93 96 Room Air 03/13/17 23:51 97.0 82 18 109/69 98 03/13/17 19:59 97.5 84 18 107/73 98 03/13/17 16:00 97.3 95 20 115/81 99 03/13/17 12:00 97.3 88 20 116/77 99 Laboratory Tests Test 03/14/17 06:30 White Blood Count 4.7 K/UL (4.8-10.8) L Red Blood Count 4.60 M/UL (4.70-6.10) L Hemoglobin 13.7 G/DL (14.2-18.0) L Hematocrit 41.5 % (42.0-52.0) L Mean Corpuscular Volume 90 FL (80-99) Mean Corpuscular Hemoglobin 29.7 PG (27.0-31.0) Mean Corpuscular Hemoglobin Concent 33.0 G/DL (32.0-36.0) Red Cell Distribution Width 15.3 % (11.6-14.8) H Platelet Count 341 K/UL (150-450) Mean Platelet Volume 5.1 FL (6.5-10.1) L Neutrophils (%) (Auto) 35.8 % (45.0-75.0) L Lymphocytes (%) (Auto) 46.5 % (20.0-45.0) H Monocytes (%) (Auto) 14.3 % (1.0-10.0) H Eosinophils (%) (Auto) 2.1 % (0.0-3.0) Basophils (%) (Auto) 1.4 % (0.0-2.0) Sodium Level 140 MMOL/L (136-145) Potassium Level 4.2 MMOL/L (3.5-5.1) Chloride Level 104 MMOL/L (98-107) Carbon Dioxide Level 30 MMOL/L (21-32) Anion Gap 6 mmol/L (5-15) Blood Urea Nitrogen 3 mg/dL (7-18) L Creatinine 0.7 MG/DL (0.55-1.30) Estimat Glomerular Filtration Rate > 60 mL/min (>60) Glucose Level 115 MG/DL (74-106) H Calcium Level 9.1 MG/DL (8.5-10.1) Lipase 488 U/L (73-393) H Height (Feet): 5 Height (Inches): 9.00 Weight (Pounds): 180 Medications Current Medications Medications (Trade) Dose Ordered Sig/Taj Route PRN Reason Start Time Stop Time Status Last Admin Dose Admin Acetaminophen (Tylenol) 650 mg Q4H PRN ORAL fever 03/10/17 16:45 04/09/17 16:44 Al Hydroxide/Mg Hydroxide (Mylanta II) 30 ml Q6H PRN ORAL dyspepsia 03/10/17 16:45 04/09/17 16:44 Chlordiazepoxide (Librium) 25 mg Q6H PRN ORAL Agitation, tremors 03/11/17 23:15 03/18/17 23:14 Dextrose (Dextrose 50%) STAT PRN IV Hypoglycemia 03/10/17 16:45 04/09/17 16:44 Diphenhydramine HCl (Benadryl) 25 mg Q6H PRN ORAL Itching/Pruritis 03/10/17 16:45 04/09/17 16:44 Folic Acid (Folate) 1 mg DAILY ORAL 03/12/17 09:00 04/11/17 08:59 03/14/17 08:34 Heparin Sodium (Porcine) (Heparin 5000 units/ml) 5,000 units EVERY 12 HOURS SUBQ 03/10/17 21:00 04/09/17 20:59 03/14/17 08:42 Lorazepam (Ativan 2mg/ml 1ml) 1 mg Q4H PRN IV agitation 03/10/17 16:45 03/17/17 16:44 Metoclopramide HCl (Reglan) 10 mg Q6H PRN IVP severe nausea 03/10/17 16:45 04/09/17 16:44 Morphine Sulfate (Morphine Sulfate) 2 mg Q4H PRN IVP severe Pain (Pain Scale 7-10) 03/10/17 16:45 03/17/17 16:44 03/14/17 08:34 Nitroglycerin (Ntg) 0.4 mg Q5M X 3 DOSES PRN SL Prn Chest Pain 03/10/17 16:45 04/09/17 16:44 Ondansetron HCl (Zofran) 4 mg Q6H PRN IVP Nausea & Vomiting 03/10/17 16:45 04/09/17 16:44 Pantoprazole (Protonix) 40 mg DAILY IV 03/11/17 09:00 04/10/17 08:59 03/14/17 08:34 Polyethylene Glycol (Miralax) 17 gm HSPRN PRN ORAL Constipation 03/10/17 16:45 04/09/17 16:44 Promethazine HCl (Phenergan) 25 mg Q8H PRN IV refractory nausea 03/10/17 16:45 04/09/17 16:44 Temazepam (Restoril) 15 mg HSPRN PRN ORAL Insomnia 03/10/17 16:45 03/17/17 16:44 Thiamine HCl (Vitamin B1) 100 mg DAILY ORAL 03/12/17 09:00 04/11/17 08:59 03/14/17 08:35 Assessment/Plan Status: stable Assessment/Plan mdd alcohol dependence Maria Fernanda Fitzpatrick M.D. Mar 14, 2017 11:38
[2017-03-14 12:00] VITALS: BP 112/72
--- NOTE | 2017-03-14 12:11 | Diagnostic Imaging Report ---
Clinical Indication: Abdominal pain, nausea, vomiting Technique: Patient given oral contrast. IV administration nonionic contrast. Venous phase spiral acquisition obtained through the abdomen and pelvis. Multiplanar reconstructions were generated. Total dose length product 1584 mGycm. CTDIvol(s) 8, 105, 15, 17 mGy. Dose reduction achieved using automated exposure control Comparison: None Findings: The appendix is normal. There are a few small colonic diverticula. No evidence of diverticulitis. Distal esophagus, stomach, duodenum are unremarkable. No small bowel distention. No free or loculated intraperitoneal air or fluid. The liver demonstrates wedge-shaped areas of low attenuation in segment 6 in segment 8. There is also some low-attenuation in segment 4B adjacent to the falciform ligament. There is an 8mm subcentimeter low-attenuation lesion in segment 4B, and a similar 9 mm lesion in segment 2. Somewhat irregularly-shaped area of low attenuation is seen in segment 3, most likely some focal fatty infiltration. The gallbladder, bile ducts, pancreas, spleen, adrenals, right kidney are unremarkable. Left kidney demonstrates a subcentimeter low-attenuation lesion which is too small to characterize. No pelvic mass or adenopathy. No retroperitoneal or mesenteric mass or adenopathy. There is relative atrophy of the left gluteal musculature as compared to the right. There is a left hip prosthesis. On image 5 of series 6, 4 mm pleural-based nodule is seen in the right lower lobe. The included lung bases are otherwise clear. The bones are unremarkable except for the left hip hardware and mild degenerative at L5-S1 disc. Impression: No definite acute process Wedge-shaped areas of low attenuation within the liver, most likely reflecting areas of geographic fatty change Focal fatty change is also seen in the usual location adjacent to the falciform ligament Subcentimeter low-attenuation hepatic lesions, too small to characterize, most likely benign simple cysts or bile hamartomas Left hip prosthesis. Relative asymmetric atrophy of the left gluteal musculature, likely related to such 4 mm right lower lobe pleural-based lung nodule. Per Fleischner criteria, no further followup necessary if there are no significant risk for lung carcinoma. If there is history of smoking or other significant risk for lung cancer then further followup CT in 6-12 months is recommended The CT scanner at [facility] is accredited by the [employer] and the scans are performed using protocols designed to limit radiation exposure to as low as reasonably achievable to attain images of sufficient resolution adequate for diagnostic evaluation.
--- NOTE | 2017-03-14 16:37 | Pulmonology Progress Note ---
Assessment/Plan Problems: (1) Pancreatitis, acute (2) Hypokalemia (3) Cyclical vomiting Assessment/Plan symptomatic treatment advance diet if tolerated. check labs cathleen Subjective ROS Limited/Unobtainable: No Interval Events: still nauseous Allergies: Coded Allergies: No Known Allergies (Unverified , 03/10/17) Objective Last 24 Hour Vital Signs Date Time Temp Pulse Resp B/P (MAP) Pulse Ox O2 Delivery O2 Flow Rate FiO2 03/14/17 12:00 98.1 76 16 112/72 97 Room Air 03/14/17 09:04 97.0 03/14/17 08:00 96.8 79 18 130/93 96 Room Air 03/13/17 23:51 97.0 82 18 109/69 98 03/13/17 19:59 97.5 84 18 107/73 98 General Appearance: WD/WN HEENT: normocephalic, atraumatic Respiratory/Chest: chest wall non-tender, lungs clear Cardiovascular: normal peripheral pulses, normal rate Abdomen: normal bowel sounds, soft, non tender Genitourinary: normal external genitalia Extremities: no cyanosis Skin: no rash 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 Lymphatic: no neck adenopathy, no groin adenopathy Musculoskeletal: normal muscle bulk Laboratory Tests 03/14/17 06:30: White Blood Count 4.7L, Red Blood Count 4.60L, Hemoglobin 13.7L, Hematocrit 41.5L, Mean Corpuscular Volume 90, Mean Corpuscular Hemoglobin 29.7, Mean Corpuscular Hemoglobin Concent 33.0, Red Cell Distribution Width 15.3H, Platelet Count 341, Mean Platelet Volume 5.1L, Neutrophils (%) (Auto) 35.8L, Lymphocytes (%) (Auto) 46.5H, Monocytes (%) (Auto) 14.3H, Eosinophils (%) (Auto ) 2.1, Basophils (%) (Auto) 1.4, Sodium Level 140, Potassium Level 4.2, Chloride Level 104, Carbon Dioxide Level 30, Anion Gap 6, Blood Urea Nitrogen 3L , Creatinine 0.7, Estimat Glomerular Filtration Rate > 60, Glucose Level 115H, Calcium Level 9.1, Lipase 488H Current Medications Medications (Trade) Dose Ordered Sig/Taj Route PRN Reason Start Time Stop Time Status Last Admin Dose Admin Acetaminophen (Tylenol) 650 mg Q4H PRN ORAL fever 03/10/17 16:45 04/09/17 16:44 Al Hydroxide/Mg Hydroxide (Mylanta II) 30 ml Q6H PRN ORAL dyspepsia 03/10/17 16:45 04/09/17 16:44 Chlordiazepoxide (Librium) 25 mg Q6H PRN ORAL Agitation, tremors 03/11/17 23:15 03/18/17 23:14 Dextrose (Dextrose 50%) STAT PRN IV Hypoglycemia 03/10/17 16:45 04/09/17 16:44 Diphenhydramine HCl (Benadryl) 25 mg Q6H PRN ORAL Itching/Pruritis 03/10/17 16:45 04/09/17 16:44 Fluoxetine HCl (PROzac) 20 mg DAILY ORAL 03/15/17 09:00 04/14/17 08:59 Folic Acid (Folate) 1 mg DAILY ORAL 03/12/17 09:00 04/11/17 08:59 03/14/17 08:34 Heparin Sodium (Porcine) (Heparin 5000 units/ml) 5,000 units EVERY 12 HOURS SUBQ 03/10/17 21:00 04/09/17 20:59 03/14/17 08:42 Lorazepam (Ativan 2mg/ml 1ml) 1 mg Q4H PRN IV agitation 03/10/17 16:45 03/17/17 16:44 Metoclopramide HCl (Reglan) 10 mg Q6H PRN IVP severe nausea 03/10/17 16:45 04/09/17 16:44 Mirtazapine (Remeron) 7.5 mg BEDTIME ORAL 03/14/17 21:00 04/13/17 20:59 Morphine Sulfate (Morphine Sulfate) 2 mg Q4H PRN IVP severe Pain (Pain Scale 7-10) 03/10/17 16:45 03/17/17 16:44 03/14/17 15:15 Nitroglycerin (Ntg) 0.4 mg Q5M X 3 DOSES PRN SL Prn Chest Pain 03/10/17 16:45 04/09/17 16:44 Ondansetron HCl (Zofran) 4 mg Q6H PRN IVP Nausea & Vomiting 03/10/17 16:45 04/09/17 16:44 Pantoprazole (Protonix) 40 mg DAILY IV 03/11/17 09:00 04/10/17 08:59 03/14/17 08:34 Polyethylene Glycol (Miralax) 17 gm HSPRN PRN ORAL Constipation 03/10/17 16:45 04/09/17 16:44 Promethazine HCl (Phenergan) 25 mg Q8H PRN IV refractory nausea 03/10/17 16:45 04/09/17 16:44 Temazepam (Restoril) 15 mg HSPRN PRN ORAL Insomnia 03/10/17 16:45 03/17/17 16:44 Thiamine HCl (Vitamin B1) 100 mg DAILY ORAL 03/12/17 09:00 04/11/17 08:59 03/14/17 08:35 CIPRIANO PALMER Mar 14, 2017 16:36
[2017-03-14 20:07] VITALS: BP 109/74
--- NOTE | 2017-03-14 22:48 | General Progress Note ---
Assessment/Plan Status: stable Assessment/Plan mdd alcohol -prozac 20mg -remeron 7.5mg Subjective Date patient seen: Mar 14, 2017 Neurologic/Psychiatric: Reports: anxiety, depressed, emotional problems Allergies: Coded Allergies: No Known Allergies (Unverified , 03/10/17) Objective Last 24 Hour Vital Signs Date Time Temp Pulse Resp B/P (MAP) Pulse Ox O2 Delivery O2 Flow Rate FiO2 03/14/17 20:25 Room Air 03/14/17 20:07 97.9 68 19 109/74 99 03/14/17 15:45 98.1 03/14/17 12:00 98.1 76 16 112/72 97 Room Air 03/14/17 08:00 96.8 79 18 130/93 96 Room Air 03/13/17 23:51 97.0 82 18 109/69 98 Laboratory Tests 03/14/17 06:30: White Blood Count 4.7L, Red Blood Count 4.60L, Hemoglobin 13.7L, Hematocrit 41.5L, Mean Corpuscular Volume 90, Mean Corpuscular Hemoglobin 29.7, Mean Corpuscular Hemoglobin Concent 33.0, Red Cell Distribution Width 15.3H, Platelet Count 341, Mean Platelet Volume 5.1L, Neutrophils (%) (Auto) 35.8L, Lymphocytes (%) (Auto) 46.5H, Monocytes (%) (Auto) 14.3H, Eosinophils (%) (Auto ) 2.1, Basophils (%) (Auto) 1.4, Sodium Level 140, Potassium Level 4.2, Chloride Level 104, Carbon Dioxide Level 30, Anion Gap 6, Blood Urea Nitrogen 3L , Creatinine 0.7, Estimat Glomerular Filtration Rate > 60, Glucose Level 115H, Calcium Level 9.1, Lipase 488H Height (Feet): 5 Height (Inches): 9.00 Weight (Pounds): 180 Maria Fernanda Fitzpatrick M.D. Mar 14, 2017 22:48
[2017-03-15 00:48] VITALS: BP 113/76
[2017-03-15 04:00] VITALS: BP 105/62
[2017-03-15 05:43] LABS: EOSINOPHILS % (AUTO) 2.3 % (0.0-3.0); MEAN CORPUSCULAR HEMOGLOBIN 29.9 PG (27.0-31.0); MEAN CORPUSCULAR HGB CONC 33.1 G/DL (32.0-36.0); MEAN CORPUSCULAR VOLUME 90 FL (80-99); MEAN PLATELET VOLUME 5.9 FL (6.5-10.1); MONOCYTES % (AUTO) 16.1 % (1.0-10.0); NEUTROPHILS % (AUTO) 36.6 % (45.0-75.0); PLATELET COUNT 359 K/UL (150-450); RED BLOOD COUNT 4.74 M/UL (4.70-6.10); RED CELL DISTRIBUTION WIDTH 15.4 % (11.6-14.8); WHITE BLOOD COUNT 4.5 K/UL (4.8-10.8)
[2017-03-15 05:57] LABS: CRP QUANT 2.2 mg/dL (0.00-0.90); MAGNESIUM 1.8 MG/DL (1.8-2.4); PHOSPHORUS 2.8 MG/DL (2.5-4.9)
[2017-03-15 05:59] LABS: ALANINE AMINOTRANSFERASE 54 U/L (12-78); ALBUMIN/GLOBULIN RATIO 0.9 (1.0-2.7); ANION GAP 5 mmol/L (5-15); ASPARTATE AMINO TRANSFERASE 62 U/L (15-37); CALCIUM 9.5 MG/DL (8.5-10.1); CARBON DIOXIDE 30 MMOL/L (21-32); CHLORIDE 104 MMOL/L (98-107); CREATININE 0.8 MG/DL (0.55-1.30); GLOMERULAR FILTRATION RATE > 60 mL/min (>60); LIPASE 594 U/L (73-393); SODIUM 139 MMOL/L (136-145); TOTAL PROTEIN 6.7 G/DL (6.4-8.2)
[2017-03-15] MEDS: Morphine Sulfate 2mg/ml Inj IVP PRN ×4 (06:33→19:20)
[2017-03-15 08:15] VITALS: BP 119/86
[2017-03-15] MEDS: Thiamine 100mg tab ORAL SCH (08:32)
[2017-03-15] MEDS: Pantoprazole Inj IV SCH (08:33)
[2017-03-15] MEDS: Heparin 5000 units/ml inj SUBQ SCH (08:34)
[2017-03-15 11:52] VITALS: BP 123/77
--- NOTE | 2017-03-15 15:17 | General Progress Note ---
Assessment/Plan Status: stable, progressing Assessment/Plan mdd alcohol -prozac 20mg -remeron 7.5mg Subjective Date patient seen: Mar 15, 2017 Neurologic/Psychiatric: Reports: anxiety, depressed, emotional problems Allergies: Coded Allergies: No Known Allergies (Unverified , 03/10/17) Subjective the pt is doing better slept better no anxiety today Objective Last 24 Hour Vital Signs Date Time Temp Pulse Resp B/P (MAP) Pulse Ox O2 Delivery O2 Flow Rate FiO2 03/15/17 11:52 98.1 65 20 123/77 98 03/15/17 11:16 98.1 03/15/17 08:15 97.9 84 20 119/86 97 Room Air 03/15/17 04:20 Room Air 03/15/17 04:00 98.1 78 19 105/62 98 03/15/17 00:48 98.1 76 18 113/76 98 03/14/17 20:25 Room Air 03/14/17 20:07 97.9 68 19 109/74 99 Intake and Output 03/15/17 03/16/17 19:00 07:00 Intake Total 480 ml Balance 480 ml Intake Oral 480 ml Laboratory Tests 03/15/17 05:30: White Blood Count 4.5L, Red Blood Count 4.74, Hemoglobin 14.2, Hematocrit 42.8, Mean Corpuscular Volume 90, Mean Corpuscular Hemoglobin 29.9, Mean Corpuscular Hemoglobin Concent 33.1, Red Cell Distribution Width 15.4H, Platelet Count 359, Mean Platelet Volume 5.9L, Neutrophils (%) (Auto) 36.6L, Lymphocytes (%) (Auto) 43.0, Monocytes (%) (Auto) 16.1H, Eosinophils (%) (Auto) 2.3, Basophils (%) ( Auto) 2.0, Erythrocyte Sedimentation Rate 21H, Sodium Level 139, Potassium Level 4.0, Chloride Level 104, Carbon Dioxide Level 30, Anion Gap 5, Blood Urea Nitrogen 8, Creatinine 0.8, Estimat Glomerular Filtration Rate > 60, Glucose Level 116H, Calcium Level 9.5, Phosphorus Level 2.8, Magnesium Level 1.8, Total Bilirubin 0.3, Aspartate Amino Transf (AST/SGOT) 62H, Alanine Aminotransferase ( ALT/SGPT) 54, Alkaline Phosphatase 38L, C-Reactive Protein, Quantitative 2.2H, Total Protein 6.7, Albumin 3.1L, Globulin 3.6, Albumin/Globulin Ratio 0.9L, Amylase Level 139H, Lipase 594H Height (Feet): 5 Height (Inches): 9.00 Weight (Pounds): 180 General Appearance: WD/WN, no apparent distress, alert Neurologic: alert, oriented x 3, responsive, normal mood/affect Maria Fernanda Fitzpatrick M.D. Mar 15, 2017 15:17
--- NOTE | 2017-03-15 15:26 | Pulmonology Progress Note ---
Assessment/Plan Problems: (1) Pancreatitis, acute (2) Hypokalemia (3) Cyclical vomiting Assessment/Plan symptomatic treatment diet tolerated pain is better pt wants to go home Subjective ROS Limited/Unobtainable: No Constitutional: Reports: no symptoms HEENT: Repors: no symptoms Allergies: Coded Allergies: No Known Allergies (Unverified , 03/10/17) Objective Last 24 Hour Vital Signs Date Time Temp Pulse Resp B/P (MAP) Pulse Ox O2 Delivery O2 Flow Rate FiO2 03/15/17 11:52 98.1 65 20 123/77 98 03/15/17 11:16 98.1 03/15/17 08:15 97.9 84 20 119/86 97 Room Air 03/15/17 04:20 Room Air 03/15/17 04:00 98.1 78 19 105/62 98 03/15/17 00:48 98.1 76 18 113/76 98 03/14/17 20:25 Room Air 03/14/17 20:07 97.9 68 19 109/74 99 Intake and Output 03/15/17 03/16/17 19:00 07:00 Intake Total 480 ml Balance 480 ml Intake Oral 480 ml General Appearance: WD/WN HEENT: normocephalic, atraumatic Respiratory/Chest: chest wall non-tender, lungs clear, normal breath sounds Cardiovascular: normal peripheral pulses, normal rate Abdomen: normal bowel sounds, soft, non tender, no scars Extremities: no cyanosis Skin: no ulcers Laboratory Tests 03/15/17 05:30: White Blood Count 4.5L, Red Blood Count 4.74, Hemoglobin 14.2, Hematocrit 42.8, Mean Corpuscular Volume 90, Mean Corpuscular Hemoglobin 29.9, Mean Corpuscular Hemoglobin Concent 33.1, Red Cell Distribution Width 15.4H, Platelet Count 359, Mean Platelet Volume 5.9L, Neutrophils (%) (Auto) 36.6L, Lymphocytes (%) (Auto) 43.0, Monocytes (%) (Auto) 16.1H, Eosinophils (%) (Auto) 2.3, Basophils (%) ( Auto) 2.0, Erythrocyte Sedimentation Rate 21H, Sodium Level 139, Potassium Level 4.0, Chloride Level 104, Carbon Dioxide Level 30, Anion Gap 5, Blood Urea Nitrogen 8, Creatinine 0.8, Estimat Glomerular Filtration Rate > 60, Glucose Level 116H, Calcium Level 9.5, Phosphorus Level 2.8, Magnesium Level 1.8, Total Bilirubin 0.3, Aspartate Amino Transf (AST/SGOT) 62H, Alanine Aminotransferase ( ALT/SGPT) 54, Alkaline Phosphatase 38L, C-Reactive Protein, Quantitative 2.2H, Total Protein 6.7, Albumin 3.1L, Globulin 3.6, Albumin/Globulin Ratio 0.9L, Amylase Level 139H, Lipase 594H Current Medications Medications (Trade) Dose Ordered Sig/Taj Route PRN Reason Start Time Stop Time Status Last Admin Dose Admin Acetaminophen (Tylenol) 650 mg Q4H PRN ORAL fever 03/10/17 16:45 04/09/17 16:44 Al Hydroxide/Mg Hydroxide (Mylanta II) 30 ml Q6H PRN ORAL dyspepsia 03/10/17 16:45 04/09/17 16:44 Chlordiazepoxide (Librium) 25 mg Q6H PRN ORAL Agitation, tremors 03/11/17 23:15 03/18/17 23:14 Dextrose (Dextrose 50%) STAT PRN IV Hypoglycemia 03/10/17 16:45 04/09/17 16:44 Diphenhydramine HCl (Benadryl) 25 mg Q6H PRN ORAL Itching/Pruritis 03/10/17 16:45 04/09/17 16:44 Fluoxetine HCl (PROzac) 20 mg DAILY ORAL 03/15/17 09:00 04/14/17 08:59 03/15/17 08:33 Folic Acid (Folate) 1 mg DAILY ORAL 03/12/17 09:00 04/11/17 08:59 03/15/17 08:32 Heparin Sodium (Porcine) (Heparin 5000 units/ml) 5,000 units EVERY 12 HOURS SUBQ 03/10/17 21:00 04/09/17 20:59 03/15/17 08:34 Lorazepam (Ativan 2mg/ml 1ml) 1 mg Q4H PRN IV agitation 03/10/17 16:45 03/17/17 16:44 Metoclopramide HCl (Reglan) 10 mg Q6H PRN IVP severe nausea 03/10/17 16:45 04/09/17 16:44 Mirtazapine (Remeron) 7.5 mg BEDTIME ORAL 03/14/17 21:00 04/13/17 20:59 03/14/17 20:34 Morphine Sulfate (Morphine Sulfate) 2 mg Q4H PRN IVP severe Pain (Pain Scale 7-10) 03/10/17 16:45 03/17/17 16:44 03/15/17 15:17 Nitroglycerin (Ntg) 0.4 mg Q5M X 3 DOSES PRN SL Prn Chest Pain 03/10/17 16:45 04/09/17 16:44 Ondansetron HCl (Zofran) 4 mg Q6H PRN IVP Nausea & Vomiting 03/10/17 16:45 04/09/17 16:44 Pantoprazole (Protonix) 40 mg DAILY IV 03/11/17 09:00 04/10/17 08:59 03/15/17 08:33 Polyethylene Glycol (Miralax) 17 gm HSPRN PRN ORAL Constipation 03/10/17 16:45 04/09/17 16:44 Promethazine HCl (Phenergan) 25 mg Q8H PRN IV refractory nausea 03/10/17 16:45 04/09/17 16:44 Temazepam (Restoril) 15 mg HSPRN PRN ORAL Insomnia 03/10/17 16:45 03/17/17 16:44 Thiamine HCl (Vitamin B1) 100 mg DAILY ORAL 03/12/17 09:00 04/11/17 08:59 03/15/17 08:32 CIPRIANO PALMER Mar 15, 2017 15:26
[2017-03-15 16:03] VITALS: BP 126/80
--- NOTE | 2017-03-15 16:11 | GI Progress Note ---
Assessment/Plan Problems: (1) Cyclical vomiting ICD Codes: G43.A0 - Cyclical vomiting, not intractable SNOMED: 01867806 (2) Pancreatitis, acute ICD Codes: K85.90 - Acute pancreatitis without necrosis or infection, unspecified SNOMED: 543913636 Qualifiers: Qualified Codes: K85.90 - Acute pancreatitis without necrosis or infection, unspecified (3) Elevated liver enzymes ICD Codes: R74.8 - Abnormal levels of other serum enzymes SNOMED: 775431686 (4) Alcohol abuse ICD Codes: F10.10 - Alcohol abuse, uncomplicated SNOMED: 42130356 Status: stable Status Narrative Discussed with Dr. Wilkins. Assessment/Plan Recommendations fu CT AP >> unremarkable okay for DC per GI standpoint adv to regular diet symptomatic treatment pain mgmt zofran prn PO/IV hydration ppi electrolyte correction repeat lipase, downtrending fu labs alcohol/drug cessation given Subjective Subjective abdominal pain improved wants to go home Objective Last 24 Hour Vital Signs Date Time Temp Pulse Resp B/P (MAP) Pulse Ox O2 Delivery O2 Flow Rate FiO2 03/15/17 16:03 98.4 83 21 126/80 97 Room Air 03/15/17 15:47 98.4 03/15/17 11:52 98.1 65 20 123/77 98 03/15/17 08:15 97.9 84 20 119/86 97 Room Air 03/15/17 04:20 Room Air 03/15/17 04:00 98.1 78 19 105/62 98 03/15/17 00:48 98.1 76 18 113/76 98 03/14/17 20:25 Room Air 03/14/17 20:07 97.9 68 19 109/74 99 Intake and Output 03/15/17 03/16/17 19:00 07:00 Intake Total 480 ml Balance 480 ml Intake Oral 480 ml Laboratory Tests Test 03/15/17 05:30 White Blood Count 4.5 K/UL (4.8-10.8) L Red Blood Count 4.74 M/UL (4.70-6.10) Hemoglobin 14.2 G/DL (14.2-18.0) Hematocrit 42.8 % (42.0-52.0) Mean Corpuscular Volume 90 FL (80-99) Mean Corpuscular Hemoglobin 29.9 PG (27.0-31.0) Mean Corpuscular Hemoglobin Concent 33.1 G/DL (32.0-36.0) Red Cell Distribution Width 15.4 % (11.6-14.8) H Platelet Count 359 K/UL (150-450) Mean Platelet Volume 5.9 FL (6.5-10.1) L Neutrophils (%) (Auto) 36.6 % (45.0-75.0) L Lymphocytes (%) (Auto) 43.0 % (20.0-45.0) Monocytes (%) (Auto) 16.1 % (1.0-10.0) H Eosinophils (%) (Auto) 2.3 % (0.0-3.0) Basophils (%) (Auto) 2.0 % (0.0-2.0) Erythrocyte Sedimentation Rate 21 MM/HR (0-15) H Sodium Level 139 MMOL/L (136-145) Potassium Level 4.0 MMOL/L (3.5-5.1) Chloride Level 104 MMOL/L (98-107) Carbon Dioxide Level 30 MMOL/L (21-32) Anion Gap 5 mmol/L (5-15) Blood Urea Nitrogen 8 mg/dL (7-18) Creatinine 0.8 MG/DL (0.55-1.30) Estimat Glomerular Filtration Rate > 60 mL/min (>60) Glucose Level 116 MG/DL (74-106) H Calcium Level 9.5 MG/DL (8.5-10.1) Phosphorus Level 2.8 MG/DL (2.5-4.9) Magnesium Level 1.8 MG/DL (1.8-2.4) Total Bilirubin 0.3 MG/DL (0.2-1.0) Aspartate Amino Transf (AST/SGOT) 62 U/L (15-37) H Alanine Aminotransferase (ALT/SGPT) 54 U/L (12-78) Alkaline Phosphatase 38 U/L (46-116) L C-Reactive Protein, Quantitative 2.2 mg/dL (0.00-0.90) H Total Protein 6.7 G/DL (6.4-8.2) Albumin 3.1 G/DL (3.4-5.0) L Globulin 3.6 g/dL Albumin/Globulin Ratio 0.9 (1.0-2.7) L Amylase Level 139 U/L (25-115) H Lipase 594 U/L (73-393) H Height (Feet): 5 Height (Inches): 9.00 Weight (Pounds): 180 General Appearance: WD/WN, no apparent distress, alert Cardiovascular: normal rate Respiratory/Chest: normal breath sounds, no respiratory distress Abdominal Exam: normal bowel sounds, non tender, soft Extremities: normal range of motion, non-tender Aranza Espino N.P. Mar 15, 2017 16:11
--- NOTE | 2017-03-15 17:17 | Internal Med Progress Note ---
Subjective Date of Service: Mar 15, 2017 Physician Name PaulaNevin Attending Physician Israel Gold MD Current Medications Medications (Trade) Dose Ordered Sig/Taj Route PRN Reason Start Time Stop Time Status Last Admin Dose Admin Acetaminophen (Tylenol) 650 mg Q4H PRN ORAL fever 03/10/17 16:45 04/09/17 16:44 Al Hydroxide/Mg Hydroxide (Mylanta II) 30 ml Q6H PRN ORAL dyspepsia 03/10/17 16:45 04/09/17 16:44 Chlordiazepoxide (Librium) 25 mg Q6H PRN ORAL Agitation, tremors 03/11/17 23:15 03/18/17 23:14 Dextrose (Dextrose 50%) STAT PRN IV Hypoglycemia 03/10/17 16:45 04/09/17 16:44 Diphenhydramine HCl (Benadryl) 25 mg Q6H PRN ORAL Itching/Pruritis 03/10/17 16:45 04/09/17 16:44 Fluoxetine HCl (PROzac) 20 mg DAILY ORAL 03/15/17 09:00 04/14/17 08:59 03/15/17 08:33 Folic Acid (Folate) 1 mg DAILY ORAL 03/12/17 09:00 04/11/17 08:59 03/15/17 08:32 Heparin Sodium (Porcine) (Heparin 5000 units/ml) 5,000 units EVERY 12 HOURS SUBQ 03/10/17 21:00 04/09/17 20:59 03/15/17 08:34 Lorazepam (Ativan 2mg/ml 1ml) 1 mg Q4H PRN IV agitation 03/10/17 16:45 03/17/17 16:44 Metoclopramide HCl (Reglan) 10 mg Q6H PRN IVP severe nausea 03/10/17 16:45 04/09/17 16:44 Mirtazapine (Remeron) 7.5 mg BEDTIME ORAL 03/14/17 21:00 04/13/17 20:59 03/14/17 20:34 Morphine Sulfate (Morphine Sulfate) 2 mg Q4H PRN IVP severe Pain (Pain Scale 7-10) 03/10/17 16:45 03/17/17 16:44 03/15/17 15:17 Nitroglycerin (Ntg) 0.4 mg Q5M X 3 DOSES PRN SL Prn Chest Pain 03/10/17 16:45 04/09/17 16:44 Ondansetron HCl (Zofran) 4 mg Q6H PRN IVP Nausea & Vomiting 03/10/17 16:45 04/09/17 16:44 Pantoprazole (Protonix) 40 mg DAILY IV 03/11/17 09:00 04/10/17 08:59 03/15/17 08:33 Polyethylene Glycol (Miralax) 17 gm HSPRN PRN ORAL Constipation 03/10/17 16:45 04/09/17 16:44 Promethazine HCl (Phenergan) 25 mg Q8H PRN IV refractory nausea 03/10/17 16:45 04/09/17 16:44 Temazepam (Restoril) 15 mg HSPRN PRN ORAL Insomnia 03/10/17 16:45 03/17/17 16:44 Thiamine HCl (Vitamin B1) 100 mg DAILY ORAL 03/12/17 09:00 04/11/17 08:59 03/15/17 08:32 Allergies: Coded Allergies: No Known Allergies (Unverified , 03/10/17) ROS Limited/Unobtainable: No Constitutional: Reports: no symptoms HEENT: Reports: no symptoms Cardiovascular: Reports: no symptoms Respiratory: Reports: no symptoms Gastrointestinal/Abdominal: Reports: abdominal pain Genitourinary: Reports: no symptoms Neurologic/Psychiatric: Reports: no symptoms Subjective 46 YO M admitted with abdominal paint and pancreatitis. Cover for Int Nigel-Dr Gold Await discharge home Objective Last Vital Signs Date Time Temp Pulse Resp B/P (MAP) Pulse Ox O2 Delivery O2 Flow Rate FiO2 03/15/17 16:03 98.4 83 21 126/80 97 Room Air Laboratory Tests Test 03/15/17 05:30 White Blood Count 4.5 K/UL (4.8-10.8) L Red Blood Count 4.74 M/UL (4.70-6.10) Hemoglobin 14.2 G/DL (14.2-18.0) Hematocrit 42.8 % (42.0-52.0) Mean Corpuscular Volume 90 FL (80-99) Mean Corpuscular Hemoglobin 29.9 PG (27.0-31.0) Mean Corpuscular Hemoglobin Concent 33.1 G/DL (32.0-36.0) Red Cell Distribution Width 15.4 % (11.6-14.8) H Platelet Count 359 K/UL (150-450) Mean Platelet Volume 5.9 FL (6.5-10.1) L Neutrophils (%) (Auto) 36.6 % (45.0-75.0) L Lymphocytes (%) (Auto) 43.0 % (20.0-45.0) Monocytes (%) (Auto) 16.1 % (1.0-10.0) H Eosinophils (%) (Auto) 2.3 % (0.0-3.0) Basophils (%) (Auto) 2.0 % (0.0-2.0) Erythrocyte Sedimentation Rate 21 MM/HR (0-15) H Sodium Level 139 MMOL/L (136-145) Potassium Level 4.0 MMOL/L (3.5-5.1) Chloride Level 104 MMOL/L (98-107) Carbon Dioxide Level 30 MMOL/L (21-32) Anion Gap 5 mmol/L (5-15) Blood Urea Nitrogen 8 mg/dL (7-18) Creatinine 0.8 MG/DL (0.55-1.30) Estimat Glomerular Filtration Rate > 60 mL/min (>60) Glucose Level 116 MG/DL (74-106) H Calcium Level 9.5 MG/DL (8.5-10.1) Phosphorus Level 2.8 MG/DL (2.5-4.9) Magnesium Level 1.8 MG/DL (1.8-2.4) Total Bilirubin 0.3 MG/DL (0.2-1.0) Aspartate Amino Transf (AST/SGOT) 62 U/L (15-37) H Alanine Aminotransferase (ALT/SGPT) 54 U/L (12-78) Alkaline Phosphatase 38 U/L (46-116) L C-Reactive Protein, Quantitative 2.2 mg/dL (0.00-0.90) H Total Protein 6.7 G/DL (6.4-8.2) Albumin 3.1 G/DL (3.4-5.0) L Globulin 3.6 g/dL Albumin/Globulin Ratio 0.9 (1.0-2.7) L Amylase Level 139 U/L (25-115) H Lipase 594 U/L (73-393) H Intake and Output 03/15/17 03/16/17 19:00 07:00 Intake Total 480 ml Balance 480 ml Intake Oral 480 ml Objective General Appearance: WD/WN, no apparent distress, alert EENT: PERRL/EOMI, normal ENT inspection, TMs normal Neck: non-tender, normal alignment, supple, normal inspection Cardiovascular: normal peripheral pulses, normal rate, regular rhythm, no gallop/murmur, no JVD Respiratory/Chest: chest wall non-tender, lungs clear, normal breath sounds, no respiratory distress, no accessory muscle use Abdomen: decreased bowel sounds, distended, guarding, tender Extremities: normal range of motion, non-tender 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 Await psych eval (2) Sludge in gallbladder (3) Elevated liver enzymes Assessment & Plan: Due to alcohol abuse. See GI note. (4) Low back pain (5) Pancreatitis, acute Assessment & Plan: Due to alcohol abuse. See GI note. Tolerating regular diet. Await CT abdomen Status: stable Assessment/Plan Discharge planning: home with home health today NEVIN LANDRY Mar 15, 2017 17:16
--- NOTE | 2017-03-17 15:44 | Discharge Summary ---
Discharge Summary Hospital Course Date of Admission Mar 10, 2017 at 15:25 Date of Discharge Mar 15, 2017 at 20:38 Admitting Diagnosis Pancreatitis HPI Vel Bello is a 46 year old male who was admitted on Mar 10, 2017 at 15:25 for Pancreatitis Hospital Course [id number] Discharge Discharge Disposition Patient was discharged to Home (01) Discharge Diagnoses: Sri Villeda NP Mar 17, 2017 15:44
--- NOTE | 2017-03-17 22:00 | Discharge Summary 2 SIG ---
DATE OF ADMISSION: 03/10/2017 DATE OF DISCHARGE: 03/15/2017 ATTENDING PHYSICIAN: Israel Gold M.D. CONSULTANTS: 1. Hanny Ellis M.D. 2. Richmond Wilkins M.D. 3. Maria Fernanda Fitzpatrick M.D. BRIEF HOSPITAL COURSE: The patient is a 46-year-old male, who presented to ED complaining of nausea, vomiting, and abdominal pain. Symptoms started on 03/07/2017. He stated he had been drinking tequila almost daily for the past month as he became depressed because he was unable to work. He had left hip replacement on 06/2016. He presented to [place] ER complaining of nausea, vomiting, and abdominal pain. Abdominal pain was located epigastric and radiated to the left upper quadrant. On evaluation at ED, blood work showed no leukocytosis. Sodium was 126, potassium 3.0, chloride 85, BUN 5, creatinine 0.9. Lipase was 1154. LFTs were normal. Total bilirubin 1.4. He had a chest x-ray done that showed no consolidation, no effusion, no pneumothorax, no acute cardiopulmonary disease. Abdominal ultrasound showed gallbladder sludge, negative for gallstones or dilated ducts. Liver showed increased echogenicity consistent with hepatocellular disease most likely fatty change. Urine toxicology was positive for marijuana. He was given IV hydration and was placed on n.p.o. He was given antiemetics and was placed on proton pump inhibitors. He was given Librium for possible alcohol withdrawal symptoms and was placed on folic acid and thiamine. He was counseled on alcohol cessation and abstinence from street drugs. Lipase downtrended. He had CT of the abdomen and pelvis done that showed no definite acute process. He has anxiety and alcohol dependence and endorsed anxiety with depressed mood. He was diagnosed with major depressive disorder and was given Prozac 20 mg and Remeron 7.5 mg daily. Diet was eventually advanced. He was tolerating diet. He was eventually discharged home. FINAL DIAGNOSES: 1. Acute pancreatitis secondary to alcohol abuse. 2. Cyclic vomiting. 3. Elevated liver transaminases. 4. Alcohol abuse. 5. Major depressive disorder. 6. Hypokalemia. 7. Marijuana user. 8. Hepatocellular disease, likely fatty liver disease. 9. Hyponatremia, improved with intravenous fluids. DISPOSITION: The patient was discharged home. Hanny Ellis M.D. I have been assigned to dictate discharge summary on this account and I was not involved in the patient's management. Sri Villeda N.P. DR: Elian JOB#: [id number] CC:
== END 2017-03-15 20:38 | disposition home or self-care (01) | DRG 282 ==
LOC: EDBD 13:52 → EMR 14:20 → 4E 15:25 → EDBEDREQ 16:09 → 4E 17:03
DX: K85.20 Alcohol induced acute pancreatitis without necrosis or infection (principal); K76.0 Fatty (change of) liver, not elsewhere classified; E87.1 Hypo-osmolality and hyponatremia; E87.6 Hypokalemia; Z96.642 Presence of left artificial hip joint; G43.A0 Cyclical vomiting, in migraine, not intractable; F10.10 Alcohol abuse, uncomplicated; F32.9 Major depressive disorder, single episode, unspecified; R74.0 Nonspecific elevation of levels of transaminase and lactic acid dehydrogenase [LDH]; K82.8 Other specified diseases of gallbladder; M54.5 Low back pain
CPT/HCPCS: 36415; 71010; 74177; 76700; 80048; 80053; 80061; 80307; 81001; 81003; 82150; 82248; 82533; 83690; 83735; 83930; 83935; 84100; 84300; 84439; 84443; 84481; 84550; 85025; 85610; 85651; 85730; 86140; 99285; J2405